=== PATIENT | female | born 1995 | race Caucasian/White ===

== ENCOUNTER 2022-12-08 17:11 | Outpatient (CLI) | payer BC, SELFPAY ==
[2022-12-10 10:25] LABS: Rubella IgG Ab (UVM) Positive (See Note); Varicella IgG Antibody Positive (See Note)
[2022-12-10 10:42] LABS: HIV-1/2 Ag & Ab Screen Negative (Negative)
[2022-12-10 11:36] LABS: Hepatitis A Antibody IgM Negative (Negative); Hepatitis B Core Antibody Negative (Negative); Hepatitis B surface Ag Negative (Negative); Hepatitis C Ab w Rflx HCV PCR Negative (Negative)
[2022-12-11 18:16] LABS: Syphilis IgG w/Reflex Nonreactive (Nonreactive)
== END 2022-12-08 17:12 | disposition home or self-care (01) ==
LOC: LBO 17:11
PROVIDERS: PCP Nurse Practitioner; Visit Provider Obstetrics & Gynecology
DX: Z31.69 Encounter for other general counseling and advice on procreation (principal); Z11.59 Encounter for screening for other viral diseases; Z11.4 Encounter for screening for human immunodeficiency virus [HIV]; Z11.3 Encounter for screening for infections with a predominantly sexual mode of transmission
CPT/HCPCS: 36415; 86704; 86709; 86787; 86803; 87340; 87389; 86762; 86780

== ENCOUNTER 2024-02-02 12:56 | Outpatient (REF) | payer BC, SELFPAY ==
--- NOTE | 2024-02-02 10:00 | PAPFT_PTH ---
PATIENT: Karina Castillo LOC: [facility] U#:[id number] AGE/SX: 28/F ROOM: RE02/02/[address]: Emmie Rodrigues CNM : 1995 BED: DIS: 02/02/2024 SPEC #: [id number] RECD: 02/02/24 17:34 STATUS: PRANAY DALE #: [id number] ALEC: 02/02/24 10:[address]: Emmie Rodrigues DEPT: PENDING SALE TO [facility] Cytology RECD BY: Estella Strauss ENTERED: 02/02/24 17:34 SP TYPE: PAPFT OTHR DR: Niki Perez Tissues: 1 - CX/ENDOCX FOR PAP SMEARS Procedures: PAP THIN PREP/UVM Screening Comments: [id number] (CHLAMYDIA/GC)
[2024-02-02 16:16] LABS: *AMPHETAMINES SCREEN URINE Negative (Negative); *BARBITURATES SCREEN URINE Negative (Negative); *BENZODIAZEPINES SCREEN URINE Negative (Negative); Cannabinoids THC Negative (Negative); Cocaine Screen,Urine Negative (Negative); METHADONE URINE SCREEN Negative (Negative); OPIATES URINE SCREEN Negative (Negative)
[2024-02-02 16:20] LABS: Tricyclic Antidepressants Negative (Negative)
[2024-02-03 11:25] LABS: Fentanyl Scr w/Rfx Confirm Negative ng/mL (<1)
[2024-02-04 12:54] LABS: Chlamydia Result Negative (Negative); GC Result Negative (Negative)
[2024-02-08 10:33] LABS: Buprenorphine Negative ng/mL (Cutoff: 5.0); Norbuprenorphine Negative ng/mL (Cutoff: 2.5)
== END 2024-02-02 12:57 | disposition home or self-care (01) ==
LOC: LBN 12:56
PROVIDERS: PCP Nurse Practitioner; Visit Provider Advanced Practice Midwife
DX: Z34.91 Encounter for supervision of normal pregnancy, unspecified, first trimester (principal); B96.89 Other specified bacterial agents as the cause of diseases classified elsewhere
CPT/HCPCS: 36415; 80053; 80307; 80348; 86787; 86803; 86850; 86900; 86901; 87340; 87389; 87491; 87591; 88142; 84443; 85025; 86762; 86780; 87086

== ENCOUNTER 2024-02-02 14:43 | Outpatient (CLI) | payer BC, SELFPAY ==
[2024-02-02 11:48] LABS: Panorama Kit Sent via Fed Ex
[2024-02-02 11:51] LABS: Abs Immature Grans 0.06 10^3/uL (0.0-0.06); Absolute Basophil Count 0.03 10^3/uL (0.0-0.2); Absolute Eosinophil Count 0.17 10^3/uL (0.0-0.7); Absolute Lymphocyte Count 2.15 10^3/uL (1.2-3.4); Absolute Monocyte Count 0.91 10^3/uL (0.1-0.8); Absolute Neutrophil Count 8.31 10^3/uL (1.2-6.7); Basophils % 0.3 %; Eosinophils % 1.5 %; HCT 36.8 % (36.0-46.0); HGB 12.6 g/dL (11.2-15.7); Immature Grans % 0.5 %; Lymphocytes % 18.5 %; MCH 31.6 pg (27.0-33.0); MCHC 34.2 % (32.0-36.0); MCV 92 fL (80-95); MPV 9.3 fL (8.0-11.0); Monocytes % 7.8 %; Neutrophils % 71.4 %; Platelet Count 338 10^3/uL (130-400); RBC 3.99 10^6/uL (3.93-5.22); RDW 12.6 % (11.7-14.6); RDW-SD 43.1 fL; WBC 11.64 10^3/uL (4.4-10.8)
[2024-02-02 12:15] LABS: ALT 22 U/L (14-59); AST 9 U/L (15-37); Albumin 3.4 g/dL (3.4-5.0); Alkaline Phosphatase 78 U/L (46-116); Anion Gap 12.2 mmol/L (3-11); BUN 3 mg/dL (7-18); Bilirubin, Total 0.2 mg/dL (0.2-1.0); CO2 21.8 mmol/L (21.0-32.0); CREATININE 0.5 mg/dL (0.55-1.02); Calcium 8.4 mg/dL (8.5-10.1); Chloride 104 mmol/L (98-107); Estimated GFR 131.75 (mL/min/1.73m2); Glucose 90 mg/dL (74-106); Potassium 3.7 mmol/L (3.5-5.1); Sodium 138 mmol/L (136-145); TSH (W/Ref FT4) 2.77 uIU/mL (0.36-3.74); Total Protein 7.2 g/dL (6.4-8.2)
[2024-02-03 11:11] LABS: Hepatitis B Surface Ag Negative (Negative)
[2024-02-03 11:44] LABS: Hepatitis C Ab w Rflx HCV PCR Negative (Negative)
[2024-02-03 11:59] LABS: HIV-1/2 Ag & Ab Screen Negative (Negative)
[2024-02-03 12:00] LABS: Varicella IgG Antibody Positive (See Note)
[2024-02-03 12:09] LABS: Rubella IgG Ab (UVM) Positive (See Note)
[2024-02-04 15:40] LABS: Syphilis IgG w/Reflex Nonreactive (Nonreactive)
== END 2024-02-02 14:44 | disposition home or self-care (01) ==
LOC: LBO 14:49
PROVIDERS: PCP Nurse Practitioner; Visit Provider Advanced Practice Midwife
DX: Z34.91 Encounter for supervision of normal pregnancy, unspecified, first trimester (principal); Z3A.12 12 weeks gestation of pregnancy
CPT/HCPCS: 36415; 80053; 86787; 86803; 86850; 86900; 86901; 87340; 87389; 84443; 85025; 86762; 86780

== ENCOUNTER 2024-02-11 05:12 | Outpatient (CLI) | payer BC, SELFPAY ==
[2024-02-11 11:19] LABS: Glucose,1 Hr (Glucola) 120 mg/dL (80-140)
== END 2024-02-11 05:13 | disposition home or self-care (01) ==
LOC: LBO 05:12
PROVIDERS: PCP Nurse Practitioner; Visit Provider Advanced Practice Midwife
DX: Z34.91 Encounter for supervision of normal pregnancy, unspecified, first trimester (principal); Z3A.12 12 weeks gestation of pregnancy
CPT/HCPCS: 36415; 82950

== ENCOUNTER 2024-05-18 10:04 | Outpatient (CLI) | payer BC, SELFPAY ==
--- NOTE | 2024-05-18 12:45 | DI.US_ITS ---
Exam(s) US OB LETI WEIGHT EXAM: US OB LETI WEIGHT CLINICAL HISTORY: bleeding in 3rd trimester,f/u low lying placenta,O44.41,O46.93. TECHNIQUE: Transabdominal obstetrical ultrasound performed. COMPARISON: US US OB F/U FACIAL/LVOT/RVOT from 03/29/2024 FINDINGS:: Number of fetuses: 1 position: CEPHALIC Placental location: POSTERIOR No evidence of previa. The edge of the placenta measures 5 cm from th e internal. BIOMETRIC DATA: BPD: 7.27cm, 29weeks 1day HC: 26.78cm, 29weeks 1day AC: 24.95cm, 29weeks 1day FL: 5.5cm, 29weeks EFW: 1,339.15g, 3lb, 97% Composite Age: 29weeks 1day PETER: 08/02/2024 Heart Rate: 135bpm Amniotic fluid index: 17.99cm, upper limit of normal. IMPRESSION: size and weight are large for dates. Placenta appears normal. DATA REPOSITORY:
== END 2024-05-18 10:24 ==
LOC: DI 10:04
PROVIDERS: PCP Nurse Practitioner; Visit Provider Advanced Practice Midwife
DX: Z34.92 Encounter for supervision of normal pregnancy, unspecified, second trimester; Z3A.27 27 weeks gestation of pregnancy
CPT/HCPCS: 76816

== ENCOUNTER 2024-05-18 14:42 | Outpatient (REF) | payer BC, SELFPAY | END 2024-05-18 14:43 | disposition home or self-care (01) | LOC: LBN 14:42 | PROVIDERS: PCP Nurse Practitioner; Visit Provider Advanced Practice Midwife | DX: O46.93 Antepartum hemorrhage, unspecified, third trimester (principal); Z3A.37 37 weeks gestation of pregnancy | CPT/HCPCS: 87480; 87510; 87660 ==

== ENCOUNTER 2024-05-24 02:57 | Outpatient (CLI) | payer BC, SELFPAY ==
[2024-05-24 08:11] LABS: HCT 33.8 % (36.0-46.0); HGB 11.2 g/dL (11.2-15.7); MCH 31.1 pg (27.0-33.0); MCHC 33.1 % (32.0-36.0); MCV 94 fL (80-95); MPV 9.6 fL (8.0-11.0); Platelet Count 291 10^3/uL (130-400); RDW 14.3 % (11.7-14.6); RDW-SD 48.8 fL; WBC 11.43 10^3/uL (4.4-10.8)
[2024-05-24 08:34] LABS: Glucose,1 Hr (Glucola) 108 mg/dL (80-140)
== END 2024-05-24 02:58 | disposition home or self-care (01) ==
LOC: LBO 02:57
PROVIDERS: PCP Nurse Practitioner; Visit Provider Advanced Practice Midwife
DX: Z34.93 Encounter for supervision of normal pregnancy, unspecified, third trimester (principal)
CPT/HCPCS: 36415; 82950; 85027

== ENCOUNTER 2024-05-24 09:17 | Outpatient (REF) | payer BC, SELFPAY ==
[2024-05-24 11:06] LABS: *AMPHETAMINES SCREEN URINE Negative (Negative); *BARBITURATES SCREEN URINE Negative (Negative); *BENZODIAZEPINES SCREEN URINE Negative (Negative); Cannabinoids THC Negative (Negative); Cocaine Screen,Urine Negative (Negative); METHADONE URINE SCREEN Negative (Negative); OPIATES URINE SCREEN Negative (Negative)
[2024-05-24 11:07] LABS: Tricyclic Antidepressants Negative (Negative)
[2024-05-25 11:51] LABS: Fentanyl Scr w/Rfx Confirm Negative ng/mL (<1)
[2024-05-31 12:38] LABS: Buprenorphine Negative ng/mL (Cutoff: 5.0); Norbuprenorphine Negative ng/mL (Cutoff: 2.5)
== END 2024-05-24 09:18 | disposition home or self-care (01) ==
LOC: LBN 09:17
PROVIDERS: Advanced Practice Midwife; PCP Nurse Practitioner; Visit Provider Advanced Practice Midwife
DX: Z34.93 Encounter for supervision of normal pregnancy, unspecified, third trimester (principal)
CPT/HCPCS: 80307; 80348

== ENCOUNTER 2024-06-08 02:03 | Outpatient (CLI) | payer BC, SELFPAY ==
[2024-06-08 15:05] LABS: HCT 33.1 % (36.0-46.0); HGB 11.2 g/dL (11.2-15.7); MCH 31.5 pg (27.0-33.0); MCHC 33.8 % (32.0-36.0); MCV 93 fL (80-95); MPV 9.6 fL (8.0-11.0); Platelet Count 277 10^3/uL (130-400); RBC 3.56 10^6/uL (3.93-5.22); RDW 14.2 % (11.7-14.6); RDW-SD 48.4 fL; WBC 13.53 10^3/uL (4.4-10.8)
[2024-06-08 16:23] LABS: Glucose,1 Hr (Glucola) 146 mg/dL (80-140)
== END 2024-06-08 02:04 | disposition home or self-care (01) ==
LOC: LBO 02:03
PROVIDERS: Advanced Practice Midwife; PCP Nurse Practitioner; Visit Provider Advanced Practice Midwife
DX: Z34.93 Encounter for supervision of normal pregnancy, unspecified, third trimester (principal)
CPT/HCPCS: 36415; 82950; 85027

== ENCOUNTER 2024-06-16 02:28 | Outpatient (CLI) | payer BC, SELFPAY ==
--- OUTSIDE RECORDS SUMMARY | 2024-06-16 02:29 | XMS_ITS | Clinical Summary ---
Author Organization [facility] Address [facility] [place] [address] Care Team Providers Care Business Area Director Name Role Phone Linda Phillips Primary Care Provider [phone] Allergies Active Allergy Reactions Criticality Noted Date Comments Unclassified Drug 08/26/2018 ALL CILLINS Medications Medication Sig Dispensed Refills Start Date End Date Status loratadine (CLARITIN REDITABS) 10 mg dissolvable tablet 05/15/2004 Active doxycycline (VIBRAMYCIN) 100 mg capsule 10/01/2004 Active Social History Tobacco Use Types Packs/Day Years Used Date Smoking Tobacco: Never Smokeless Tobacco: Never Sex and Gender Information Value Date Recorded Sex Assigned at Not on file Gender Identity Not on file Sexual Orientation Not on file Plan of Treatment Health Maintenance Due Date Last Done Comments HIV screen 2014 Hepatitis C Screening 2014 Hepatitis B vaccine (0-59 yrs) (1) 2015 Tetanus/Diphtheria/Pertussis Vaccines (1 - Tdap) 2015 Covid-19 Vaccine (1 - season) 2024 Influenza (Flu) vaccine (1 o f 1 - Influenza standard series) 05/07/2024 PAP Smear 12/05/2024 12/05/2021, 09/16/2018 Procedures Procedure Name Priority Date/Time Associated Diagnosis Comments BUFFERER CYTOLOGY FINAL REPORT Routine 12/05/2021 12:00 PM EDT from Last 3 Months or Most Recently Relevant to Health Maintenance Results * Teacher Lip Reading Cytology Final Report (12/05/2021 12:00 PM EDT) Teacher Lip Reading Cytology Final Report [id number] ? Location: [facility] The signing pathologist has (i) examined the relevant preparation(s) for the specimen(s) and (ii) rendered or confirmed the diagnosis(es). . ? Teacher Lip Reading Final DIAGNOSIS Normal Negative for intraepithelial lesion or malignancy (NILM). For consensus guidelines for the management of cervical cancer screening test results, please see: ?? http://www.asccp.o rg . Electronically signed by: ?Akosua PEÑA(ASCP)Gómez Verified: ??12/24/2021 16:16 ??Adon Performed at: ??-[facility] Dept. of Pathology, [place], [place] HPV RESULTS HPV testing either not indicated or not requested by clinician. To add on HPV testing, please submit a Pathology Order Update ([id number]) via ProtoGeo or contact the Client Response Center at . STATEMENT OF ADEQUACY Specimen submitted is satisfactory for evaluation. No endocervical component present. Note: ??Initial cross-sectional studies suggested that GARY cells were more commonly identified when an endocervical component was present, however subsequent longitudinal studies fail to show that women lacking an endocervical component in a Pap smear are at increased risk for GARY. CLINICAL INFORMATION HPV Option: ? Reflex HPV CT/NG Option: ? No Preparation: ?Liquid Based Pap Specimen Source: ?Cervical Endocervical LBP LMP: ?11/24/2021 Hysterectomy?: ?No ?: ?No ?: ?No I.U.D.?: ?No Pelvic Radiation: ? No Hist Abnl Pap/Biopsy?: ??No Prior BUFFERER Therapy?: ? No Hist of HPV Vaccine?: ?? No ICD Diagnosis: ?Z12.4 Encounter for screening for malignant neoplasm of cervix Referring Identifier: ?(not provided) Clinical Data, Significant Therapy and Clinical Impression ?? : ?? _ Referring Identifier: ??_ This Pap Test has been evaluated with the assistance of the LivevolPrep Pap Test Imaging System. Note: . CLINICAL INFORMATION The Pap test is a screening test for cervical cancer with an inherent false-negative rate dependent upon several variables. For further information please contact the [facility] Laboratory. Reference: Portia RAMIREZ. [place] Flaker of Pap Smear Results. In: Kyara BS, Nick HH, ed. ??The Pap Smear. [place]: Akil, 2002: 71-77. [facility] 12/05/2021 12:0 0 PM EDT Narrative Resulting Agency Comment Spec In Lab / [facility] Niki Perez APRN PATHOLOGY/CYTOLOGY O RDERABLES [facility] [place] [address] from Last 3 Months or Most Recently Relevant to Health Maintenance Care Teams Business Area Director Relationship Specialty Start Date End Date Linda Phillips PA [address] [place], [place] [id number] PCP - General Family Medicine 08/26/18
--- OUTSIDE RECORDS SUMMARY | 2024-06-16 02:29 | XMS_ITS | Encounter Summary ---
Author Organization [facility] Address [facility] [place] [address] Care Team Providers Care Residential Child Care Counselor Name Role Phone Linda Phillips Primary Care Provider [phone] Encounter Details Date Type Department Care Team (Latest Contact Info) Description 12/05/2021 10:08 PM EDT - 12/05/2021 11:59 PM EDT Hospital Encounter Laboratory [facility] [place] [id number] Discharge Disposition: Home Social History Tobacco Use Types Packs/Day Years Used Date Smoking Tobacco: Never Smokeless Tobacco: Never Sex and Gender Information Value Date Recorded Sex Assigned at Not on file Gender Identity Not on file Sexual Orientation Not on file documented as of this encounter Medications at Time of Discharge Medication Sig Dispensed Refills Start Date End Date doxycycline (VIBRAMYCIN) 100 mg capsule 0 10/01/2004 loratadine (CLARITIN REDITABS) 10 mg dissolvable tablet 05/15/2004 documented as of this encounter Plan of Treatment Not on file documented as of this encounter Procedures Procedure Name Priority Date/Time Associated Diagnosis Comments CREDIT REPORTING CLERK CYTOLOGY INTERPRETATION Routine 12/05/2021 12:00 PM EDT CREDIT REPORTING CLERK CYTOLOGY FINAL REPORT Routine 12/05/2021 12:00 PM EDT documented in this encounter Results * CREDIT REPORTING CLERK Cytology Interpretation (12/05/2021 12:00 PM EDT) Rv Service Technician Cytology Interpretation [facility] Comment:Rv Service Technician Cytology Final R eport Endocervical Component Not Present [facility] AP Specimen 12/05/2021 12:0 0 PM EDT 12/24/2021 4:16 PM EDT Narrative Resulting Agency Comment Spec In Lab / [facility] Niki Perez SOLDER MAKING SUPERVISOR PATHOLOGY/CYTOLOGY O RDERABLES [facility] [place] [address] * Rv Service Technician Cytology Final Report (12/05/2021 12:00 PM EDT) Rv Service Technician Cytology Final Report [id number] ? Location: [facility] The signing pathologist has (i) examined the relevant preparation(s) for the specimen(s) and (ii) rendered or confirmed the diagnosis(es). . ? Rv Service Technician Final DIAGNOSIS Normal Negative for intraepithelial lesion or malignancy (NILM). For consensus guidelines for the management of cervical cancer screening test results, please see: ?? http://www.asccp.o rg . Electronically signed by: ?Akosua PEÑA(ASCP)Gómez Verified: ??12/24/2021 16:16 ??Advisory Software Engineer Performed at: ??-[facility] Dept. of Pathology, [place], [place] HPV RESULTS HPV testing either not indicated or not requested by clinician. To add on HPV testing, please submit a Pathology Order Update ([id number]) via eD-H or contact the Client Response Center at [...] ? No Hist Abnl Pap/Biopsy?: ??No Prior CREDIT REPORTING CLERK Therapy?: ? No Hist of HPV Vaccine?: ?? No ICD Diagnosis: ?Z12.4 Encounter for screening for malignant neoplasm of cervix Referring Identifier: ?(not provided) Clinical Data, Significant Therapy and Clinical Impression ?? : ?? _ Referring Identifier: ??_ This Pap Test has been evaluated with the assistance of the Cloud9 IDEp Pap Test Imaging System. Note: . CLINICAL INFORMATION The Pap test is a screening test for cervical cancer with an inherent false-negative rate dependent upon several variables. For further information please contact the [facility] Laboratory. Reference: Portia RAMIREZ. Grinding Wheel Operator of Pap Smear Results. In: Kyara BS, Nick HH, ed. ??The Pap Smear. [place]: Akil, 2002: 71-77. [facility] 12/05/2021 12:0 0 PM EDT Narrative Resulting Agency Comment Spec In Lab / [facility] Niki Perez APRN PATHOLOGY/CYTOLOGY O RDERABLES [facility] [place] [address] documented in this encounter Visit Diagnoses Not on filedocumented in this encounter Care Teams Residential Child Care Counselor Relationship Specialty Start Date End Date Linda Phillips PA [address] [place] [address] PCP - General Family Medicine 08/26/18 documented as of this encounter
--- OUTSIDE RECORDS SUMMARY | 2024-06-16 02:29 | XMS_ITS | Encounter Summary ---
[place] [address] Care Team Providers Care Vehicle Assembly Inspector Name Role Phone Linda Phillips Primary Care Provider [phone] Reason for Referral * Consultation (Routine) - Authorized Specialty Diagnoses / Procedures Referred By Contac t Referred To Contact Gastroenterology Diagnoses Elevation of levels of liver transaminase levels metavir stage f1-f2 Niki Perez, PALLET RECTIFIER [address] [place] [address] [facility] [address] [place] [phone] Referral ID Status Reason Start Date Expiration Date Visits Requested Visits Authorized [id number] Authorized Consult, Test & Treat PCP Updated and/or Approved 12/22/2023 12/21/2024 6 6 Encounter Details Date Type Department Care Team (Latest Contact Info) Description 12/29/2023 Transcribe Orders eDH Incoming Referrals [phone] Linda Phillips PA [address] [place] [phone] Elevation of levels of liver transaminase levels Social History Tobacco Use Types Packs/Day Years Used Date Smoking Tobacco: Never Smokeless Tobacco: Never Sex and Gender Information Value Date Recorded Sex Assigned at Not on file Gender Identity Not on file Sexual Orientation Not on file documented as of this encounter Plan of Treatment Scheduled Referrals Name Type Priority Associated Diagnoses Order Schedule Referral to Gastroenterology Outpatient Referral Routine Elevation of levels of liver transaminase levels Ordered: 12/29/2023 documented as of this encounter Visit Diagnoses Diagnosis Elevation of levels of liver transaminase levels documented in this encounter Care Teams Vehicle Assembly Inspector Relationship Specialty Start Date End Date Linda Phillips PA [address] [place] [address] PCP - General Family Medicine 08/26/18 documented as of this encounter
--- OUTSIDE RECORDS SUMMARY | 2024-06-16 02:29 | XMS_ITS | Encounter Summary ---
Author Organization [facility] [place] [address] Care Team Providers Care Outreach Educator Name Role Phone Linda Phillips Primary Care Provider [phone] Encounter Details Date Type Department Care Team (Late st Contact Info) Description 12/20/2023 Interpretation Only Radiology Library at [facility] [place] [id number] Flynn Jara MD [facility] [place] [address] Social History Tobacco Use Types Packs/Day Years Used Date Smoking Tobacco: Never Smokeless Tobacco: Never Sex and Gender Information Value Date Recorded Sex Assigned at Not on file Gender Identity Not on file Sexual Orientation Not on file documented as of this encounter Plan of Treatment Not on file documented as of this encounter Procedures Procedure Name Priority Date/Time Associated Diagnosis Comments FILM LIBRARY STORAGE ONLY ULTRASOUND STUDY Routine 12/20/2023 12:00 AM EDT documented in this encounter Results * Film Library- Storage Only Ultrasound Study (12/20/2023 12:00 AM EDT) 12/27/2023 3:26 PM EDT Narrative GARRY Cho 12/27/2023 3:26 PM EDT This exam is auto-finalizing. It's purpose is for storage only. Flynn Jara MD IMG FILM LIBRARY OR DERABLES [facility] [place], [place] documented in this encounter Visit Diagnoses Not on filedocumented in this encounter Care Teams Outreach Educator Relationship Specialty Start Date End Date Linda [place] [address] PCP - General Family Medicine 08/26/18 documented as of this encounter
--- OUTSIDE RECORDS SUMMARY | 2024-06-16 02:29 | XMS_ITS | Encounter Summary ---
Author Organization [facility] Address [facility] [place] [address] Care Team Providers Care Line Repairer Name Role Phone Linda Phillips Primary Care Provider [phone] Reason for Visit * Reason Comments Skin Check * Consultation (Routine) - Specialty Diagnoses / Procedures Referred By Contac t Referred To Contact Dermatology Diagnoses Acne, unspecified Acne Procedures Consult Shyanne Torres APRN [address] [place] [address] Ronaldo Henning MD [address] [place] [address], [facility] [place] [address] Referral ID Status Reason Start Date Expiration Date V isits Requested Visits Authorized [id number] Consult, Test & Treat PCP Updated and/or Approved 02/21/2018 02/21/2019 6 6 Encounter Details Date Type Department Care Team (Late st Contact Info) Description 08/26/2018 10:30 AM EST Office Visit Dermatology at [address] [phone] Ronaldo Henning MD [address] [place] [address], [facility] [place], [place] [id number] Allergic contact dermatitis, unspecified trigger Social History Tobacco Use Types Packs/Day Years Used Date Smoking Tobacco: Never Smokeless Tobacco: Never Sex and Gender Information Value Date Recorded Sex Assigned at Not on file Gender Identity Not on file Sexual Orientation Not on file documented as of this encounter Progress Notes * Ronaldo Henning MD - 08/26/2018 10:30 AM EST Problem: Lip dermatitis Karina is a 22-year-old woman 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 It seems to be associated with the use of Carmex SPF 15 sunscreen lip balm. Seems to be better when she uses mupirocin ointment. She currently is using Blistex lip Medex which has no SPF and she can tolerate that. She uses Crest toothpaste. She is not having any problems right now. Seems like it was worse this summer less of a problem now this winter. She does not have any rash anywhere but just on her lips. Physical examination reveals a pleasant 22-year-old woman who has today no dermatitis erythema or changes of the lips or the surrounding chin or upper cutaneous lip. Intraoral examination is benign. Assessment plan: Irritant versus allergic contact dermatitis to sunscreen additive in lip balm 1. Patient recalls an itchy rash rash after once using a topical sunscreen to her arms this last summer. 2. Recommend use of chemical free sunscreen either zinc oxide or titanium dioxide on her skin. 3. Recommend that she use [employer] regular flavor toothpaste and to avoid any chemical sunscreen containing the palms. Discussed the use of Vaseline petroleum jelly as a good lip balm as well 4. Patient does not use any mouthwashes and when she does use hard candies or use lozenges has no reaction on her lips. 5. Return to clinic as needed. CC: Linda PULIDO documented in this encounter Plan of Treatment Not on file documented as of this encounter Visit Diagnoses Diagnosis Allergic contact dermatitis, unspecified trigger documented in this encounter Care Teams Line Repairer Relationship Specialty Start Date End Date Linda Phillips [place] [address] PCP - General Family Medicine 08/26/18 documented as of this encounter
--- OUTSIDE RECORDS SUMMARY | 2024-06-16 02:29 | XMS_ITS | Encounter Summary ---
Author Organization [facility] Address [facility] [place] [address] Care Team Providers Care Stave Hewer Name Role Phone Linda Phillips Primary Care Provider [phone] Encounter Details Date Type Department Care Team (Latest Contact Info) Description 09/16/2018 9:43 PM EST - 09/16/2018 11:59 PM EST Hospital Encounter Laboratory [facility] [place] [address] Discharge Disposition: Home Social History Tobacco Use [...] Procedure Name Priority Date/Time Associated Diagnosis Comments SQL TECH CYTOLOGY INTERPRETATION Routine 09/16/2018 6:00 PM EST SQL TECH CYTOLOGY FINAL REPORT Routine 09/16/2018 6:00 PM EST documented in this encounter Results * Memory Care Program Director Cytology Final Report (09/16/2018 6:00 PM EST) Memory Care Program Director Cytology Final Report [id number] ? Location: [facility] The signing pathologist has (i) examined the relevant preparation(s) for the specimen(s) and (ii) rendered or confirmed the diagnosis(es). . ? Memory Care Program Director Final DIAGNOSIS Normal Negative for intraepithelial lesion or malignancy (NILM). For consensus guidelines for the management of cervical cancer screening test results, please see: ?? http://www.asccp.o rg . Electronically signed by: ??Reji PEÑA(ASCP)Migdalia Verified: ??09/29/2018 ?Truck Operator Performed at: ??-[facility] Dept. of Pathology, [place], [place] HPV RESULTS Not applicable (HPV testing either not indicated or not requested by clinician). STATEMENT OF ADEQUACY Specimen submitted is satisfactory for evaluation. No endocervical component present. Note: ??Initial cross-sectional studies suggested that GARY cells were more commonly identified when an endocervical component was present, however subsequent longitudinal studies fail to show that women lacking an endocervical component in a Pap smear are at increased risk for GARY. CLINICAL INFORMATION HPV Option: ? Reflex HPV CT/NG Option: ??No Preparation: ?Liquid Based Pap Specimen Source: ?Cervical/LBP LMP: ?_ Hormones?: ?Yes Hysterectomy?: ?No ?: ?No ?: ?No I.U.D.?: ?No Pelvic Radiation: ? No Prior SQL TECH Therapy?: ? No Hist Abnl Pap/Biopsy?: ??No Hist of HPV Vaccine?: ?? Yes Hist of Smoking?: ? No Hist of ELKE exposure?: ??No Clinical Data, Significant Therapy and Clinical Impression ?? : ?? _ Referring Identifier: ?(not provided) This Pap Test has been evaluated with the assistance of the DataPadPrep Pap Test Imaging System. Note: The Pap test is a screening test for cervical cancer with an inherent false-negative rate dependent upon several variables. For further information please contact the [facility] Laboratory. Reference: Portia RAMIREZ. Veterans Services Specialist of Pap Smear Results. In: Kyara BS, Nick HH, ed. ??The Pap Smear. [place]: Akil, 2002: 71-77. . CLINICAL INFORMATION [facility] 09/16/2018 6:00 PM EST Татьяна Bah APRN PATHOLOGY/CYT OLOGY ORDERABLES Performing Organization Address [facility] Co de Phone Number [facility] [place] [address] * SQL TECH Cytology Interpretation (09/16/2018 6:00 PM EST) Memory Care Program Director Cytology Interpretation [facility] Comment:Memory Care Program Director Cytology Final R eport Endocervical Component Not Present [facility] AP Specimen 09/16/2018 6:00 PM EST 09/29/2018 1:45 PM EST Татьяна Bah APRN PATHOLOGY/CYT OLOGY ORDERABLES Performing Organization Address City/[facility] Co de Phone Number [facility] [place] [address] documented in this encounter Visit Diagnoses Not on filedocumented in this encounter Care Teams Stave Hewer Relationship Specialty Start Date End Date Linda [place] [address] PCP - General Family Medicine 08/26/18 documented as of this encounter
--- OUTSIDE RECORDS SUMMARY | 2024-06-16 02:29 | XMS_ITS | Clinical Summary ---
Author Organization [facility] Address [address] [place] [address] Care Team Providers Care Manager Sql Name Role Phone Unavailable Primary Care Provider Unavailabl e Encounters Date Type Department Care Team Description 05/24/2024 Lab Requisition [facility] Pathology & Laboratory Medicine - [facility] [address] [place] [address] Outr Resulting Lab, Provider from Last 3 Months Social History Tobacco Use Types Packs/Day Years Used Date Smoking Tobacco: Never Assessed Sex and Gender Information Value Date Recorded Sex Assigned at Not on file Gender Identity Not on file Sexual Orientation Not on file Plan of Treatment Health Maintenance Due Date Last Done Comments Hepatitis B Vaccine (1 of 3 - 19+ 3-dose series) 09/30 COVID-19 Vaccine ( season) 2024 Hepatitis C Screen Completed 02/02/2024 Procedures Procedure Name Priority Date/Time Associated Diagnosis Comments FENTANYL SCREEN WITH REFLEX TO CONFIRMATION, U Routine 05/24/2024 8:45 EDT HEPATITIS C AB W REFLEX TO HCV RNA BY PCR Routine 02/02/2024 11:35 EDT from Last 3 Months or Most Recently Relevant to Health Maintenance Results * FENTANYL SCREEN WITH REFLEX TO CONFIRMATION, U (05/24/2024 8:45 EDT) Fentanyl Screen with Reflex to Confirmation, U Negative <1 ng/mL 05/25/2024 11:47 EDT [facility] Urine URINE / Unknown 05/24/2024 8 :45 EDT 05/24/2024 17:17 EDT Narrative [facility] - 05/25/2024 11:47 EDT Testing performed by: [facility] [address] [place] [address], [address], [place] [address] Patrol Captain: Micah Box MD; CLIA # [id number] Provider Outr Resulting Lab URINALYSIS O RDERABLES [facility] [address] [facility], [facility] [address] [place] [address], [facility] [phone] * HEPATITIS C AB W REFLEX TO HCV RNA BY PCR (02/02/2024 11:35 EDT) Hep C Antibody Negative Negative 02/03/2024 11:39 EDT [facility] Blood VENOUS BLOOD / Unknown 02/02/2024 11:35 EDT 02/02/2024 21:28 EDT Provider Outr Resulting Lab CHEMISTRY & BLOOD GAS ORDERABLES [facility] [address] [place] [id number] from Last 3 Months or Most Recently Relevant to Health Maintenance
--- OUTSIDE RECORDS SUMMARY | 2024-06-16 02:29 | XMS_ITS | Encounter Summary ---
Author Organization [facility] Address [facility] [place] [address] Care Team Providers Care Adult Psychiatrist Name Role Phone Linda Phillips Primary Care Provider [phone] Encounter Details Date Type Department Care Team (Latest Contact Info) Description 04/14/2019 9:09 PM EDT - 04/14/2019 11:59 PM EDT Hospital Encounter Laboratory [facility] [place] [id number] Discharge Disposition: Home Social History Tobacco Use [...] Procedure Name Priority Date/Time Associated Diagnosis Comments CT/NG PCR Routine 04/14/2019 12:00 PM EDT documented in this encounter Results * CT/NG PCR (04/14/2019 12:00 PM EDT) Chlamydia Gene Amp Negative Negative [facility] Comment: This assay was performed in the [facility] using the vikram?? CT/NG v2.0 Test ([employer] The vikram?? CT/NG v2.0 Test is an in vitro diagnostic test for the qualitative detection of Chlamydia trachomatis (CT) and/or Neisseria gonorrhoeae (NG) DNA in urogenital specimens. The Test utilizes the Polymerase Chain Reaction (PCR) for the detection of Chlamydia trachomatis and Neisseria gonorrhoeae DNA in cervical specimens collected in PreservCyt?? solution. This test is intended as an aid in the diagnosis of chlamydial and gonococcal disease in both symptomatic and asymptomatic individuals. GC Gene Amp Negative Negative [facility] Comment: This assay was performed in the [facility] Laboratory using the vikram?? CT/NG v2.0 Test ([employer] The vikram?? CT/NG v2.0 Test is an in vitro diagnostic test for the qualitative detection of Chlamydia trachomatis (CT) and/or Neisseria gonorrhoeae (NG) DNA in urogenital specimens. The Test utilizes the Polymerase Chain Reaction (PCR) for the detection of Chlamydia trachomatis and Neisseria gonorrhoeae DNA in cervical specimens collected in PreservCyt?? solution. This test is intended as an aid in the diagnosis of chlamydial and gonococcal disease in both symptomatic and asymptomatic individuals. Cervical swab (specimen) 04/14/2019 12:00 PM EDT 04/19/2019 9:09 AM EDT Narrative Resulting Agency Comment Spec In Lab / WKS Fani Jay APRN MOLECULAR ORDERABLES [facility] [place] [address] documented in this encounter Visit Diagnoses Not on filedocumented in this encounter Care Teams Adult Psychiatrist Relationship Specialty Start Date End Date Linda Phillips PA [address] [place] [address] PCP - General Family Medicine 08/26/18 documented as of this encounter
--- OUTSIDE RECORDS SUMMARY | 2024-06-16 02:29 | XMS_ITS | Encounter Summary ---
Author Organization [facility] Address [facility] [place] [address] Care Team Providers Care Marble Mechanic Helper Name Role Phone Linda Phillips Primary Care Provider [phone] Reason for Visit * Consultation (Routine) - Authorized Specialty Diagnoses / Procedures Referred By Darrion sevilla Referred To Contact Gastroenterology Diagnoses Elevation of levels of liver transaminase levels metavir stage f1-f2 Niki Perez, MICHAEAL [address] [place] [address] [facility] [address] [place] [id number] Referral ID Status Reason Start Date Expiration Date Visits Requested Visits Authorized [id number] Authorized Consult, Test & Treat PCP Updated and/or Approved 12/22/2023 12/21/2024 6 6 Encounter Details Date Type Department Care Team ([facility] st Contact Info) Description 02/08/2024 2:30 PM EDT TH Visit (TeleHealth) [place] [address] Amberly Campa APRN [facility] [place] [address] Elevated LFTs Social History Tobacco Use Types Packs/Day Years Used Date Smoking Tobacco: Never Smokeless Tobacco: Never Sex and Gender Information Value Date Recorded Sex Assigned at Not on file Gender Identity Not on file Sexual Orientation Not on file documented as of this encounter Progress Notes * Amberly Campa APRN - 02/08/2024 2:30 PM EDT Gastroenterology and Hepatology New Patient Visit Patient: Karina Dias : 1995 Provider: Amberly Campa APRN MSN History: Ms. Karina Dias is a 28 y.o. female previously healthy now here for initial consult for elevated lfts. 13 Weeks tomorrow. Due date 08/16/24 [place] No blood transfusion history. 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 Last alcoholic drink was the day her test was positive-First week of December 2023. Was drinking every other weekend. Was having 6-7 drinks when she did go out. She was drinking for about 1.5 years. Did have heavier alcohol use when she was 21 or 22 yo. No rehab history. She cut back because she was having trouble at work. Mom of cirrhosis-Alcohol. Mom had hcv and etoh as risk factors. She at 57 yo. Dad had liver jjocwx-nptclsile-zmsijiy history. He quit drinking 13 years ago. Does not take herbal supplements. Taking a PNV, and sertraline 50 mg. Also, taking a baby aspirin 81 mg. BMI-33. No miscarriage history. Stopped OCP in September of last year-took some time for cycle to regulate. She got started on metformin, and then got soon after. Diabetes-No HTN/HLD-No history. LOKESH-No History VHEK-Owq-Dhe previously been on metformin, Mild hb intermittently. No reflux. Appetite is great. Weight-177 pounds-Has gained 4 pounds with . No abdominal pain. Bowels-Normal for her. No bleeding, no melena. Used c-bands for first trimester. Lots of fatigue. Had some headaches initially. Surgery: T/A Slater teeth February 02, 2024 ALT-26 November 2023-Prior to . ALT-70 Social History: Motorycycle. Likes to be outside. Has her [employer] license. 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 ROS: Constitutional: No unintentional weight loss, fatigue, nor fevers. CV: Denies chest pain, palpitations, dizziness, SOB, Difficulty lying flat, and swollen ankles Resp: No cough, no wheezing GI: As per HPI : No increase in frequency, no burning, no pain with urination Hem: No easy bruising, no swollen nodes, denies gums bleeding easily. MSK: No joint pain/swelling, no muscle pain Skin: No new rash,sores, or lesions. Neuro: No loss of strength, no headaches, or memory loss/changes. Psych: No anxiety, depression, or difficulty sleeping. PROBLEM LIST There is no problem list on file for this patient. MEDICATIONS: Current Outpatient Medications Medication Sig Dispense Refill doxycycline (VIBRAMYCIN) 100 mg capsule loratadine (CLARITIN REDITABS) 10 mg dissolvable tablet No current facility-administered medications for this visit. ALLERGIES/ADR Allergies Allergen Reactions Unable To Find [Unclassified Drug] ALL CILLINS PHYSICAL EXAMINATION: There were no vitals filed for this visit. There is no height or weight on file to calculate BMI. Alert, and oriented. Easily converses with this production underwriter. Comfortable wob in ra. Skin and sclera are nonicteric. PERTINENT LABS AND IMAGING: No results found for: WBC, HGB, HCT, MCV No results found for: ALT, AST, GGT, ALKPHOS, BILITOT Chemistry No results found for: NA, K, CL, CO2, BUN, CREATININE No results found for: CALCIUM, ALKPHOS, AST, ALT, BILITOT IMPRESSION/PLAN: Karina Dias is a 28 y.o. female with previously healthy now here for initial consult forelevated lfts. Do not have all of her labs to review, no ob notes to review either. It sounds like her lfts were elevated prior to , and are normalizing. I suspect that lfts were elevated previously due toetoh. Will recheck labs in [facility]. Set her up for follow up 3-6 months after deliver for fibroscan. We discussed how etoh can cause the lfts to elevated. We also discussed fatty liver risk factors. Would continue to monitor lfts as normal for per her OB team. The patient was given my contact information and will call me with concerns or questions Total time spent on encounter today: Time spent reviewing records prior to this encounter: 5 minutes Time spent during encounter with patient including counselin minutes Time spent documenting encounter after office visit: 5 minutes Amberly Campa APRN MSN Section of Gastroenterology and [place] [address] Cc: ASHOK [email or web address] @[email or web address] documented in this encounter Plan of Treatment Scheduled Orders Name Type Priority Associated Diagnoses Orde r Schedule CBC (with Diff) Lab Routine Elevated LFTs Expected: 02/24/2024 (Approximate), Expires: 08/25/2024 Comprehensive metabolic panel (non-fasting) Lab Routine Elevated LFTs Expected: 02/24/2024 (Approximate), Expires: 08/25/2024 Prothrombin Time Lab Routine Elevated LFTs Expected: 02/24/2024 (Approximate), Expires: 08/25/2024 documented as of this encounter Visit Diagnoses Diagnosis Elevated LFTs Other abnormal blood chemistry documented in this encounter Care Teams Marble Mechanic Helper Relationship Specialty Start Date End Date Linda Phillips PA [address] [place] [address] PCP - General Family Medicine 08/26/18 documented as of this encounter
--- OUTSIDE RECORDS SUMMARY | 2024-06-16 02:29 | XMS_ITS | Encounter Summary ---
Author Organization [facility] Address [address] [place] [address] Care Team Providers Care Rehabilitation Center Manager Name Role Phone Unavailable Primary Care Provider Unavailabl e Encounter Details Date Type Department Care Team (Late st Contact Info) Description 02/02/2024 Lab Requisition [facility] Pathology & Laboratory Medicine - [facility] [address] [place] [address] Outr Resulting Lab, Provider Social History Tobacco Use Types Packs/Day Years Used Date Smoking Tobacco: Never Assessed Sex and Gender Information Value Date Recorded Sex Assigned at Not on file Gender Identity Not on file Sexual Orientation Not on file documented as of this encounter Plan of Treatment Not on file documented as of this encounter Procedures Procedure Name Priority Date/Time Associated Diagnosis Comments CHLAMYDIA/N. GONORRHOEAE AMPLIFIED NUCLEIC ACID, THINPREP Routine 02/02/2024 10:00 EDT documented in this encounter Results * CHLAMYDIA/N. GONORRHOEAE AMPLIFIED RNA, THINPREP (02/02/2024 10:00 EDT) Neisseria gonorrhoeae Result Negative Negative 02/04/2024 12:49 EDT [facility] Chlamydia trachomatis Result Negative Negative 02/04/2024 12:49 EDT [facility] Pap Test CERVIX UTERI STRUCTURE / Unknown 02/02/2024 10:00 EDT 02/03/2024 9:05 EDT Provider Outr Resulting Lab MICROBIOLOGY - GENERAL ORDERABLES [facility] [address] [place] [address] documented in this encounter Visit Diagnoses Not on filedocumented in this encounter
--- OUTSIDE RECORDS SUMMARY | 2024-06-16 02:29 | XMS_ITS | Encounter Summary ---
Author Organization [facility] Address [address] [place] [address] Care Team Providers Care Ship'S Electronic Warfare Officer Name Role Phone Unavailable Primary Care Provider Unavailabl e Encounter Details Date Type Department Care Team (Late st Contact Info) Description 05/24/2024 Lab Requisition [facility] Pathology & Laboratory Medicine - [facility] [address] [place] [address] Outr Resulting Lab, Provider Social History Tobacco [...] TO CONFIRMATION, U Routine 05/24/2024 8:45 EDT documented in this encounter Results * FENTANYL SCREEN WITH REFLEX TO CONFIRMATION, U (05/24/2024 8:45 EDT) Fentanyl Screen with Reflex to Confirmation, U Negative <1 ng/mL 05/25/2024 11:47 EDT [email or web address] Urine URINE / Unknown 05/24/2024 8 :45 EDT 05/24/2024 17:17 EDT Narrative [email or web address] - 05/25/2024 11:47 EDT Testing performed by: [facility] [address] [place] [address], [facility] [address] [address] Packaging Supervisor: Micah Box MD; CLIA # [id number] Provider Outr Resulting Lab URINALYSIS O RDERABLES [email or web address] [address] [place] [address], [address] [phone] documented in this encounter Visit Diagnoses Not on filedocumented in this encounter
--- OUTSIDE RECORDS SUMMARY | 2024-06-16 02:29 | XMS_ITS | Encounter Summary ---
Author Organization [facility] [place] [address] Care Team Providers Care Data Analytics Developer Name Role Phone Migdalia Kilpatrick MD Primary Care Provider [phone] Encounter Details Date Type Department Care Team (Late st Contact Info) Description 08/08/[address] [address] Kendra Garcia RN Social History Tobacco Use Types Packs/Day Years Used Date Smoking Tobacco: Never Assessed Sex and Gender Information Value Date Recorded Sex Assigned at Not on file Gender Identity Not on file Sexual Orientation Not on file documented as of this encounter Miscellaneous Notes * Telephone Encounter - Kendra Garcia RN - 08/08/2018 4:41 PM EST Opened in error documented in this encounter Plan of Treatment Not on file documented as of this encounter Visit Diagnoses Not on filedocumented in this encounter Care Teams Data Analytics Developer Relationship Specialty Start Date End Date Migdalia Kilpatrick MD [address] [place] [id number] PCP - General 07/29/10 08/25/18 documented as of this encounter
--- OUTSIDE RECORDS SUMMARY | 2024-06-16 02:29 | XMS_ITS | Encounter Summary ---
Author Organization [facility] Address [address] [place] [address] Care Team Providers Care Innovation Manager Name Role Phone Unavailable Primary Care Provider Unavailabl e Encounter Details Date Type Department Care Team (Late st Contact Info) Description 02/03/2024 Lab Requisition [facility] Pathology & Laboratory Medicine - [facility] [address] [place] [address] [address] [place] [address] Encounter for supervision of normal , unspecified, unspecified trimester; Encounter for supervision of normal , unspecified, first trimester Social History Tobacco Use Types Packs/Day Years Used Date Smoking Tobacco: Never Assessed Sex and Gender Information Value Date Recorded Sex Assigned at Not on file Gender Identity Not on file Sexual Orientation Not on file documented as of this encounter Plan of Treatment Not on file documented as of this encounter Procedures Procedure Name Priority Date/Time Associated Diagnosis Comments PAP TEST Today 02/02/2024 10:00 EDT Encounter for supervision of normal , unspecified, unspecified trimester Encounter for supervision of normal , unspecified, first trimester documented in this encounter Results * PAP TEST (02/02/2024 10:00 EDT) Specimens A. Cervix and/or Endocervix , ThinPrep Imaging System with Manual Evaluation 02/09/2024 13:49 EDT [facility] Specimen Adequacy Satisfactory for Evaluation - transformation zone component present Scant squamous epithelial component due to contaminant, possibly lubricant or other vaginal contaminant. 02/09/2024 13:49 EDT [facility] General Categorization Negative for intraepithelial lesion or malignancy 02/09/2024 13:49 EDT [facility] Attestation . 02/09/2024 13:49 EDT [facility] at 1349 Clinical History See below 02/09/20 13:49 EDT [facility] Performing Lab [facility] 02/09/2024 13:49 EDT [facility] Scanned Images 02/09/2024 13:49 EDT [facility] Pap Test CERVIX UTERI STRUCTURE / Unknown 02/02/2024 10:00 EDT 02/03/2024 14:20 EDT Emmie Rodrigues CNM PATHOLOGY ORDERABLES [facility] [address] [place] [address] documented in this encounter Visit Diagnoses Diagnosis Encounter for supervision of normal , unspecified, unspecified trimester Encounter for supervision of normal , unspecified, first trimester documented in this encounter
--- OUTSIDE RECORDS SUMMARY | 2024-06-16 02:29 | XMS_ITS | Encounter Summary ---
Author Organization [facility] Address [address] [place] [address] Care Team Providers Care Bottom Finisher Name Role Phone Unavailable Primary Care Provider Unavailabl e Encounter Details Date Type Department Care Team (Late st Contact Info) Description 02/02/2024 Lab Requisition [facility] Pathology & Laboratory Medicine - [facility] [address] [place] [address] Outr Resulting Lab, Provider Social History Tobacco [...] Procedure Name Priority Date/Time Associated Diagnosis Comments RUBELLA IGG ANTIBODY Routine 02/02/2024 11:35 EDT VARICELLA IGG ANTIBODY Routine 02/02/2024 11:35 EDT documented in this encounter Results * VARICELLA IGG ANTIBODY (02/02/2024 11:35 EDT) Varicella IgG Ab Positive See Note 02/03/2024 11:[address] [facility] Comment:Presence of detectab le Varicella Zoster virus IgG antibodies. Blood VENOUS BLOOD / Unknown 02/02/2024 11:35 EDT 02/02/2024 21:28 EDT Provider Outr Resulting Lab IMMUNOLOGY A ND SEROLOGY ORDERABLES [facility] [address] [place] [address] * RUBELLA IGG ANTIBODY (02/02/2024 11:35 EDT) Rubella IgG Ab Positive See Note 02/03/2024 12:[address] [facility] Comment:Positive for IgG ant ibodies to Rubella virus. Blood VENOUS BLOOD / Unknown 02/02/2024 11:35 EDT 02/02/2024 21:28 EDT Provider Outr Resulting Lab CHEMISTRY & BLOOD GAS ORDERABLES [facility] [address] [place] [address] documented in this encounter Visit Diagnoses Not on filedocumented in this encounter
--- OUTSIDE RECORDS SUMMARY | 2024-06-16 02:29 | XMS_ITS | Encounter Summary ---
Author Organization [facility] [place] [address] Care Team Providers Care Technical Professional Name Role Phone Linda Phillips Primary Care Provider [phone] Encounter Details Date Type Department Care Team (Late st Contact Info) Description 12/20/2023 Ancillary Procedure Radiology Library at [facility] [place] [address] Flynn Jara MD [facility] [place] [address] Social History Tobacco Use Types Packs/Day Years [...] Jara MD IMG FILM LIBRARY OR DERABLES [facility] [place], [place] documented in this encounter Visit Diagnoses Not on filedocumented in this encounter Care Teams Technical Professional Relationship Specialty Start Date End Date Linda Phillips [place] [address] PCP - General Family Medicine 08/26/18 documented as of this encounter
--- OUTSIDE RECORDS SUMMARY | 2024-06-16 02:29 | XMS_ITS | Encounter Summary ---
Author Organization [facility] Address [address] [place] [address] Care Team Providers Care Behavioral Sciences Instructor Name Role Phone Unavailable Primary Care Provider Unavailabl e Encounter Details Date Type Department Care Team (Late st Contact Info) Description 12/09/2022 Lab Requisition [facility] Pathology & Laboratory Medicine - [facility] [address] [place] [address] Outr Resulting Lab, Provider Social History Tobacco [...] Procedure Name Priority Date/Time Associated Diagnosis Comments HIV 1/2 ANTIGEN AND ANTIBODY, 4TH GENERATION Routine 12/08/2022 16:40 EDT documented in this encounter Results * HIV 1/2 ANTIGEN AND ANTIBODY, 4TH GENERATION (12/08/2022 16:40 EDT) HIV 1 and 2 Antibody/p24 Antigen, 4th Generation Negative Negative 12/10/2022 10:37 EDT [facility] Comment:If acute HIV-1 infec tion is suspected in a high risk patient, submit plasma specimen for HIV-1 RNA quantitation test. Blood VENOUS BLOOD / Unknown 12/08/2022 16:40 EDT 12/09/2022 19:37 EDT Narrative [facility] - 12/10/2022 10:37 EDT Fourth Generation assay performed on the Siemens Centaur XPT. Provider Outr Resulting Lab IMMUNOLOGY A ND SEROLOGY ORDERABLES [facility] [address] [place] [address] documented in this encounter Visit Diagnoses Not on filedocumented in this encounter
--- OUTSIDE RECORDS SUMMARY | 2024-06-16 02:29 | XMS_ITS | Encounter Summary ---
Author Organization [facility] Address [address] [place] [address] Care Team Providers Care Medical Cost Consultant Name Role Phone Unavailable Primary Care Provider Unavailabl e Encounter Details Date Type Department Care Team (Late st Contact Info) Description 12/09/2022 Lab Requisition [facility] Pathology & Laboratory Medicine - [facility] [address] [place] [address] Outr Resulting Lab, Provider Social History Tobacco [...] Procedure Name Priority Date/Time Associated Diagnosis Comments ACUTE HEPATITIS PROFILE Routine 12/08/2022 16:40 EDT documented in this encounter Results * ACUTE HEPATITIS PROFILE (12/08/2022 16:40 EDT) Hep B Surface Ag Negative Negative 12/10/2022 11:31 EDT [facility] Hep C Antibody Negative Negative 12/10/2022 11:31 EDT [facility] Hepatitis A Antibody, IgM Negative Negative 12/10/2022 11:31 EDT [facility] Comment:The results of this assay can be falsely lowered due to the consumption of Biotin. Hepatitis B Core Ab, Total Negative Negative 12/10/2022 11:31 EDT [facility] Blood VENOUS BLOOD / Unknown 12/08/2022 16:40 EDT 12/09/2022 19:37 EDT Provider Outr Resulting Lab CHEMISTRY & BLOOD GAS ORDERABLES [facility] [address] [place] [address] documented in this encounter Visit Diagnoses Not on filedocumented in this encounter
--- OUTSIDE RECORDS SUMMARY | 2024-06-16 02:29 | XMS_ITS | Encounter Summary ---
Author Organization [facility] Address [address] [place] [address] Care Team Providers Care Military Equipment Specialist Name Role Phone Unavailable Primary Care Provider Unavailabl e Encounter Details Date Type Department Care Team (Late st Contact Info) Description 12/09/2022 Lab Requisition [facility] Pathology & Laboratory Medicine - [facility] [address] [place] [address] Outr Resulting Lab, Provider Social History Tobacco [...] Associated Diagnosis Comments RUBELLA IGG ANTIBODY Routine 12/08/2022 16:40 EDT VARICELLA IGG ANTIBODY Routine 12/08/2022 16:40 EDT documented in this encounter Results * VARICELLA IGG ANTIBODY (12/08/2022 16:40 EDT) Varicella IgG Ab Positive See Note 12/10/2022 10:17 EDT [facility] Comment:Presence of detectab le Varicella Zoster virus IgG antibodies. Blood VENOUS BLOOD / Unknown 12/08/2022 16:40 EDT 12/09/2022 19:38 EDT Provider Outr Resulting Lab IMMUNOLOGY A ND SEROLOGY ORDERABLES [facility] [address] [place] [address] * RUBELLA IGG ANTIBODY (12/08/2022 16:40 EDT) Rubella IgG Ab Positive See Note 12/10/2022 10:19 EDT [facility] Comment:Positive for IgG ant ibodies to Rubella virus. Blood VENOUS BLOOD / Unknown 12/08/2022 16:40 EDT 12/09/2022 19:38 EDT Provider Outr Resulting Lab CHEMISTRY & BLOOD GAS ORDERABLES [facility] [address] [place] [address] documented in this encounter Visit Diagnoses Not on filedocumented in this encounter
--- OUTSIDE RECORDS SUMMARY | 2024-06-16 02:29 | XMS_ITS | Encounter Summary ---
Author Organization [facility] Address [address] [place] [address] Care Team Providers Care Food Expeditor Name Role Phone Unavailable Primary Care Provider Unavailabl e Encounter Details Date Type Department Care Team (Late st Contact Info) Description 02/02/2024 Lab Requisition [facility] Pathology & Laboratory Medicine - [facility] [address], [place] [id number] Outr Resulting Lab, Provider Social History Tobacco [...] Procedure Name Priority Date/Time Associated Diagnosis Comments HEPATITIS C AB W REFLEX TO HCV RNA BY PCR Routine 02/02/2024 11:35 EDT HEPATITIS B SURFACE ANTIGEN Routine 02/02/2024 11:35 EDT documented in this encounter Results * HEPATITIS B SURFACE ANTIGEN (02/02/2024 11:35 EDT) Hep B Surface Ag Negative Negative 02/03/2024 11:06 EDT [facility] Blood VENOUS BLOOD / Unknown 02/02/2024 11:35 EDT 02/02/2024 21:28 EDT Provider Outr Resulting Lab CHEMISTRY & BLOOD GAS ORDERABLES [facility] [address] [place], [place] [address] * HEPATITIS C AB W REFLEX TO HCV RNA BY PCR (02/02/2024 11:35 EDT) Hep C Antibody Negative Negative 02/03/2024 11:39 EDT [facility] Blood VENOUS BLOOD / Unknown 02/02/2024 11:35 EDT 02/02/2024 21:28 EDT Provider Outr Resulting Lab CHEMISTRY & BLOOD GAS ORDERABLES [facility] [address] [place] [address] documented in this encounter Visit Diagnoses Not on filedocumented in this encounter
--- OUTSIDE RECORDS SUMMARY | 2024-06-16 02:29 | XMS_ITS | Encounter Summary ---
Author Organization [facility] Address [address] [place] [address] Care Team Providers Care Insurance Verification Rep Name Role Phone Unavailable Primary Care Provider Unavailabl e Encounter Details Date Type Department Care Team (Late st Contact Info) Description 02/02/2024 Lab Requisition [facility] Pathology & Laboratory Medicine - [facility] [address] [place] [address] Outr Resulting Lab, Provider Social History Tobacco [...] SCREEN WITH REFLEX TO CONFIRMATION, U Routine 02/02/2024 9:40 EDT documented in this encounter Results * FENTANYL SCREEN WITH REFLEX TO CONFIRMATION, U (02/02/2024 9:40 EDT) Fentanyl Screen with Reflex to Confirmation, U Negative <1 ng/mL 02/03/2024 11:19 EDT [facility] Urine URINE / Unknown 02/02/2024 9 :40 EDT 02/02/2024 21:20 EDT Narrative [facility] - 02/03/2024 11:19 EDT Testing performed by: [facility] [address] [place] [address], [facility] [address] [address] Coder: Micah Box MD; CLIA # [id number] Provider Outr Resulting Lab URINALYSIS O RDERABLES [facility] [address] [place] [address], [address] [phone] documented in this encounter Visit Diagnoses Not on filedocumented in this encounter
--- OUTSIDE RECORDS SUMMARY | 2024-06-16 02:29 | XMS_ITS | Referral Summary ---
Author Organization [facility] Address [address] [place] [address] Care Team Providers Care Ring Facer Name Role Phone Unavailable Primary Care Provider Unavailabl e Encounters Date Type Department Care Team Description 05/24/2024 Lab Requisition [facility] Pathology & Laboratory Medicine - [facility] [address] [place] [address] Outr Resulting Lab, Provider from Last 3 Months Social History Tobacco Use Types Packs/Day Years Used Date Smoking Tobacco: Never Assessed Sex and Gender Information Value Date Recorded Sex Assigned at Not on file Gender Identity Not on file Sexual Orientation Not on file Plan of Treatment Not on file Procedures Procedure Name Priority Date/Time Associated Diagnosis [...] U Negative <1 ng/mL 05/25/2024 11:47 EDT [facility] Urine URINE / Unknown 05/24/2024 8 :45 EDT 05/24/2024 17:17 EDT Narrative [facility] - 05/25/2024 11:47 EDT Testing performed by: [facility] [address] [place] [address], [address], [place] [address] Stator Tester: Micah Box MD; CLIA # [id number] Provider Outr Resulting Lab URINALYSIS O RDERABLES [facility] [address] [facility], [address] [place] [address], [facility] [phone] * HEPATITIS C AB W REFLEX TO HCV RNA BY PCR (02/02/2024 11:35 EDT) Hep C Antibody Negative Negative 02/03/2024 11:39 EDT [facility] Blood VENOUS BLOOD / Unknown 02/02/2024 11:35 EDT 02/02/2024 21:28 EDT Provider Outr Resulting Lab CHEMISTRY & BLOOD GAS ORDERABLES [facility] [address] [place] [address] from Last 3 Months or Most Recently Relevant to Health Maintenance
--- OUTSIDE RECORDS SUMMARY | 2024-06-16 02:29 | XMS_ITS | Encounter Summary ---
Author Organization [facility] Address [address] [place] [address] Care Team Providers Care Operations Superintendent Name Role Phone Unavailable Primary Care Provider Unavailabl e Encounter Details Date Type Department Care Team (Late st Contact Info) Description 02/02/2024 Lab Requisition [facility] Pathology & Laboratory Medicine - [facility] [address] [place] [address] Outr Resulting Lab, Provider Social History Tobacco [...] 1/2 ANTIGEN AND ANTIBODY, 4TH GENERATION Routine 02/02/2024 11:35 EDT documented in this encounter Results * HIV 1/2 ANTIGEN AND ANTIBODY, 4TH GENERATION (02/02/2024 11:35 EDT) HIV 1 and 2 Antibody/p24 Antigen, 4th Generation Negative Negative 02/03/2024 11:54 EDT [facility] Comment:If acute HIV-1 infec tion is suspected in a high risk patient, submit plasma specimen for HIV-1 RNA quantitation test. Blood VENOUS BLOOD / Unknown 02/02/2024 11:35 EDT 02/02/2024 21:28 EDT Narrative [facility] - 02/03/2024 11:54 EDT Fourth Generation assay performed on the Siemens Centaur XPT. Provider Outr Resulting Lab IMMUNOLOGY A ND SEROLOGY ORDERABLES [facility] [address] [place] [address] documented in this encounter Visit Diagnoses Not on filedocumented in this encounter
[2024-06-16 08:58] LABS: Glucose 1 Hour 168 mg/dL
[2024-06-16 11:05] LABS: Glucose 3 Hour 95 mg/dL
== END 2024-06-16 02:29 | disposition home or self-care (01) ==
LOC: LBO 02:28
PROVIDERS: PCP Nurse Practitioner; Visit Provider Advanced Practice Midwife
DX: Z34.93 Encounter for supervision of normal pregnancy, unspecified, third trimester (principal)
CPT/HCPCS: 36415; 82951

== ENCOUNTER 2024-07-21 15:33 | Outpatient (REF) | payer BC, SELFPAY | END 2024-07-21 15:34 | disposition home or self-care (01) | LOC: LBN 15:33 | PROVIDERS: PCP Nurse Practitioner; Visit Provider Obstetrics & Gynecology | DX: Z34.93 Encounter for supervision of normal pregnancy, unspecified, third trimester (principal); Z3A.36 36 weeks gestation of pregnancy | CPT/HCPCS: 87081 ==

== ENCOUNTER 2024-07-26 20:11 | Outpatient (CLI) | payer BC, SELFPAY ==
--- OUTSIDE RECORDS SUMMARY | 2024-07-26 20:15 | XMS_ITS | Referral Summary ---
Author Organization [facility] Address [address] [place] [address] Care Team Providers Care Curing Supervisor Name Role Phone Unavailable Primary Care Provider Unavailabl e Encounters Date Type Department Care Team Description 05/24/[address] [facility] Pathology & Laboratory Medicine - [facility] [address] [place] [address] Outr Resulting Lab, Provider from Last 3 Months Social History Tobacco Use Types Packs/Day Years Used Date Smoking Tobacco: Never Assessed Comments Unknown Sex and Gender Information Value Date Recorded Sex Assigned at Not on file Legal Sex Female 3:17 EDT Gender Identity Not on file Sexual Orientation [...] U Negative <1 ng/mL 05/25/2024 11:47 EDT [facility] Urine URINE / Unknown 05/24/2024 8 :45 EDT 05/24/2024 17:17 EDT Narrative [facility] - 05/25/2024 11:47 EDT Testing performed by: [facility] [address] [place] [address], [address], [place] [address] Deicer Inspector Pneumatic: Micah Box MD; CLIA # [id number] us Provider Outr Resulting Lab URINALYSIS ORDERABLE S Final Result [facility] [address] [facility], [address] [phone] * HEPATITIS C AB W REFLEX TO HCV RNA BY PCR (02/02/2024 11:35 EDT) Hep C Antibody Negative Negative 02/03/2024 11:39 EDT [facility] Blood VENOUS BLOOD / Unknown 02/02/2024 11:35 EDT 02/02/2024 21:28 EDT us Provider Outr Resulting Lab CHEMISTRY & BLOOD GA S ORDERABLES Final Result [facility] [address] [place], [place] [id number] from Last 3 Months or Most Recently Relevant to Health Maintenance
--- OUTSIDE RECORDS SUMMARY | 2024-07-26 20:15 | XMS_ITS | Encounter Summary ---
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 Niki Perez, MICHAELA [address] [place] [address] [facility] [address] [place] [phone] Referral ID Status Reason Start Date Expiration Date Visits Requested Visits Authorized [id number] Authorized Consult, Test & Treat PCP Updated and/or Approved 12/22/2023 12/21/2024 6 6 Encounter Details Date Type Department Care Team ([facility] st Contact Info) Description 02/08/2024 2:30 PM EDT TH Visit (TeleHealth) [place] [address] Amberly Campa APRN [facility] [place] [address] Elevated LFTs Social History Tobacco [...] lfts. 13 Weeks tomorrow. Due date 08/16/24 [facility] No blood transfusion history. 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 Dad had liver nyfzsh-qogkkvtlp-mggmimx history. He quit drinking 13 years ago. Does not take herbal supplements. Taking a PNV, and sertraline 50 mg. Also, taking a baby aspirin 81 mg. BMI-33. No miscarriage history. Stopped OCP in September of last year-took some time for cycle to regulate. She got started on metformin, and then got soon after. Diabetes-No HTN/HLD-No history. LOKESH-No History CKYN-Vtf-Nwx previously been on metformin, Mild hb intermittently. No reflux. Appetite is great. Weight-177 pounds-Has gained 4 pounds with . No abdominal pain. Bowels-Normal for her. No bleeding, no melena. Used c-bands for first trimester. Lots of fatigue. Had some headaches initially. Surgery: T/A [place] teeth February 02, 2024 ALT-26 November 2023-Prior to . ALT-70 Social History: Motorycycle. Likes to be outside. Has her [employer] license. 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 ROS: Constitutional: No unintentional weight loss, fatigue, [...] Alert, and oriented. Easily converses with this loan underwriter. Comfortable wob in ra. Skin and [...] previously due toetoh. Will recheck labs in [facility]. Set her up for follow up [...] APRN MSN Section of Gastroenterology [place] [address] Cc: [email or web address] documented in this [...] chemistry documented in this encounter Care Teams Tool Planner Relationship Specialty Start Date End Date Linda Phillips PA [address] [place] [address] PCP - General Family Medicine 08/26/18 documented as of this encounter
--- OUTSIDE RECORDS SUMMARY | 2024-07-26 20:15 | XMS_ITS | Encounter Summary ---
Author Organization [facility] [place] [address] Care Team Providers Care Car Conditioner Name Role Phone Linda Phillips Primary Care Provider [phone] Encounter Details Date Type Department Care Team (Late st Contact Info) Description 12/20/2023 Interpretation Only Radiology Library at [facility] [place] [address] Flynn Jara MD [facility] [place] [address] Social History Tobacco Use Types Packs/Day Years [...] Jara MD IMG FILM LIBRARY OR DERABLES [facility]NOTE 2[facility] [place], [place] documented in this encounter Visit Diagnoses Not on filedocumented in this encounter Care Teams Car Conditioner Relationship Specialty Start Date End Date Linda Phillips [place] [address] PCP - General Family Medicine 08/26/18 documented as of this encounter
--- OUTSIDE RECORDS SUMMARY | 2024-07-26 20:15 | XMS_ITS | Encounter Summary ---
Author Organization [facility] Address [facility] [place] [address] Care Team Providers Care Airborne Weapons Technical Manager Name Role Phone Linda Phillips Primary Care Provider [phone] Encounter Details Date Type Department Care Team (Latest Contact Info) Description 09/16/2018 9:43 PM EST - 09/16/2018 11:59 PM EST Hospital Encounter Laboratory [facility] [place] [address] Discharge Disposition: Home Social History Tobacco Use [...] Procedure Name Priority Date/Time Associated Diagnosis Comments OFFSET DUPLICATING MACHINE OPERATOR CYTOLOGY INTERPRETATION Routine 09/16/2018 6:00 PM EST OFFSET DUPLICATING MACHINE OPERATOR CYTOLOGY FINAL REPORT Routine 09/16/2018 6:00 PM EST documented in this encounter Results * Regulatory Compliance Specialist Cytology Final Report (09/16/2018 6:00 PM EST) Regulatory Compliance Specialist Cytology Final Report [id number] ? Location: [facility] The signing pathologist has (i) examined the relevant preparation(s) for the specimen(s) and (ii) rendered or confirmed the diagnosis(es). . ? Regulatory Compliance Specialist Final DIAGNOSIS Normal Negative for intraepithelial lesion or malignancy (NILM). For consensus guidelines for the management of cervical cancer screening test results, please see: ?? [email or web address].asccp.o rg . Electronically signed by: ??Reji PEÑA(ASCP)Migdalia Verified: ??09/29/2018 ?Security Agent Performed at: ??-[facility] [place], [place], [place] HPV RESULTS Not applicable (HPV testing [...] I.U.D.?: ?No Pelvic Radiation: ? No Prior OFFSET DUPLICATING MACHINE OPERATOR Therapy?: ? No Hist Abnl Pap/Biopsy?: ??No Hist of HPV Vaccine?: ?? Yes Hist of Smoking?: ? No Hist of ELKE exposure?: ??No Clinical Data, Significant Therapy and Clinical Impression ?? : ?? _ Referring Identifier: ?(not provided) This Pap Test has been evaluated with the assistance of the [employer] International[employer] Pap Test Imaging System. Note: The Pap test is a screening test for cervical cancer with an inherent false-negative rate dependent upon several variables. For further information please contact the [facility]. Reference: Portia RAMIREZ. Fur Feeder of Pap Smear Results. In: Kyara BS, Nick HH, ed. ??The Pap Smear. [place]: Akil, 2002: 71-77. . CLINICAL INFORMATION [facility] 09/16/2018 6:00 PM EST Татьяна Bah APRN PATHOLOGY/CYT OLOGY ORDERABLES Performing Organization Address [facility] Co de Phone Number [facility] [place] [address] * OFFSET DUPLICATING MACHINE OPERATOR Cytology Interpretation (09/16/2018 6:00 PM EST) Regulatory Compliance Specialist Cytology Interpretation [facility] Comment:Regulatory Compliance Specialist Cytology Final R eport Endocervical Component Not Present [facility] AP Specimen 09/16/2018 6:00 PM EST 09/29/2018 1:45 PM EST Татьяна Bah APRN PATHOLOGY/CYT OLOGY ORDERABLES Performing Organization Address City/[facility] Co de Phone Number [facility] [place] [address] documented in this encounter Visit Diagnoses Not on filedocumented in this encounter Care Teams Airborne Weapons Technical Manager Relationship Specialty Start Date End Date Linda Phillips [place] [address] PCP - General Family Medicine 08/26/18 documented as of this encounter
--- OUTSIDE RECORDS SUMMARY | 2024-07-26 20:15 | XMS_ITS | Encounter Summary ---
Author Organization [facility] Address [address] [place] [address] Care Team Providers Care Assistant Store Director Name Role Phone Unavailable Primary Care Provider Unavailabl e Encounter Details Date Type Department Care Team (Late st Contact Info) Description 05/24/2024 Lab Requisition [facility] Pathology & Laboratory Medicine - [facility] [address] [place] [address] Outr Resulting Lab, Provider Social History Tobacco [...] U Negative <1 ng/mL 05/25/2024 11:47 EDT [facility] Urine URINE / Unknown 05/24/2024 8 :45 EDT 05/24/2024 17:17 EDT Narrative [facility] - 05/25/2024 11:47 EDT Testing performed by: [facility] [address] [place] [address], [address], [place] [address] Blogs Manager: Micah Box MD; CLIA # [id number] us Provider Outr Resulting Lab URINALYSIS ORDERABLE S Final Result [facility] [address] [facility], [address] [phone] documented in this encounter Visit Diagnoses Not on filedocumented in this encounter
--- OUTSIDE RECORDS SUMMARY | 2024-07-26 20:15 | XMS_ITS | Encounter Summary ---
Author Organization [facility] Address [address] [place] [address] Care Team Providers Care Manager Of Learning Name Role Phone Unavailable Primary Care Provider Unavailabl e Encounter Details Date Type Department Care Team (Late st Contact Info) Description 02/02/2024 Lab Requisition [facility] Pathology & Laboratory Medicine - [facility] [address] [place] [address] Outr Resulting Lab, Provider Social History Tobacco [...] U Negative <1 ng/mL 02/03/2024 11:[address] [facility] Urine URINE / Unknown 02/02/2024 9 :40 EDT 02/02/2024 21:[address] [facility] - 02/03/2024 11:19 EDT Testing performed by: [facility] [address] [place] [address], [address], [place] [address] A R Collections Rep: Micah Box MD; CLIA # [id number] us Provider Outr Resulting Lab URINALYSIS ORDERABLE S Final Result [facility] [address] [facility], [address] [phone] documented in this encounter Visit Diagnoses Not on filedocumented in this encounter
--- OUTSIDE RECORDS SUMMARY | 2024-07-26 20:15 | XMS_ITS | Encounter Summary ---
Author Organization [facility] Address [address] [place] [address] Care Team Providers Care Shot Dropper Name Role Phone Unavailable Primary Care Provider Unavailabl e Encounter Details Date Type Department Care Team (Late st Contact Info) Description 12/09/2022 Lab Requisition [facility] Pathology & Laboratory Medicine - [facility] [address] [place] [address] Outr Resulting Lab, Provider Social History Tobacco [...] Surface Ag Negative Negative 12/10/2022 11:[address] [facility] Hep C Antibody Negative Negative 12/10/2022 11:[address] [facility] Hepatitis A Antibody, IgM Negative Negative 12/10/2022 11:[address] [facility] Comment:The results of this assay can be falsely lowered due to the consumption of Biotin. Hepatitis B Core Ab, Total Negative Negative 12/10/2022 11:[address] [facility] Blood VENOUS BLOOD / Unknown 12/08/2022 16:40 EDT 12/09/2022 19:37 EDT us Provider Outr Resulting Lab CHEMISTRY & BLOOD GA S ORDERABLES Final Result [facility] [address] [place] [address] documented in this encounter Visit Diagnoses Not on filedocumented in this encounter
--- OUTSIDE RECORDS SUMMARY | 2024-07-26 20:15 | XMS_ITS | Encounter Summary ---
Author Organization [facility] Address [facility] [place] [address] Care Team Providers Care Model Home Sales Greeter Name Role Phone Linda Phillips Primary Care Provider [phone] Encounter Details Date Type Department Care Team (Latest Contact Info) Description 04/14/2019 9:09 PM EDT - 04/14/2019 11:59 PM EDT Hospital Encounter Laboratory [facility] [place] [address] Discharge Disposition: Home Social History Tobacco Use [...] PM EDT) Chlamydia Gene Amp Negative Negative [facility] Comment: This assay was performed in the [facility] Clinical Genomics [facility] Laboratory using the vikram?? CT/NG v2.0 Test ([employer] The vikram?? CT/NG v2.0 Test [...] asymptomatic individuals. GC Gene Amp Negative Negative [facility] Comment: This assay was performed in the [facility] Clinical [facility] Laboratory using the vikram?? CT/NG v2.0 Test ([employer] The vikram?? CT/NG v2.0 Test is [...] / WKS Fani Jay APRN MOLECULAR ORDERABLES [facility] [place] [address] documented in this encounter Visit Diagnoses Not on filedocumented in this encounter Care Teams Model Home Sales Greeter Relationship Specialty Start Date End Date Linda Phillips PA [address] [place] [address] PCP - General Family Medicine 08/26/18 documented as of this encounter
--- OUTSIDE RECORDS SUMMARY | 2024-07-26 20:15 | XMS_ITS | Encounter Summary ---
Author Organization [facility] Address [address] [place] [address] Care Team Providers Care Fire Sprinkler Service Technician Name Role Phone Unavailable Primary Care Provider Unavailabl e Encounter Details Date Type Department Care Team (Late st Contact Info) Description 02/02/2024 Lab Requisition [facility] Pathology & Laboratory Medicine - [facility] [address] [place] [address] Outr Resulting Lab, Provider Social History Tobacco [...] Surface Ag Negative Negative 02/03/2024 11:06 EDT [facility] Blood VENOUS BLOOD / Unknown 02/02/2024 11:35 EDT 02/02/2024 21:28 EDT us Provider Outr Resulting Lab CHEMISTRY & BLOOD GA S ORDERABLES Final Result [facility] [address] [place] [address] * HEPATITIS C AB W REFLEX TO HCV RNA BY PCR (02/02/2024 11:35 EDT) Hep C Antibody Negative Negative 02/03/2024 11:39 EDT [facility] Blood VENOUS BLOOD / Unknown 02/02/2024 11:35 EDT 02/02/2024 21:28 EDT us Provider Outr Resulting Lab CHEMISTRY & BLOOD GA S ORDERABLES Final Result [facility] [address] [place], [place] [address] documented in this encounter Visit Diagnoses Not on filedocumented in this encounter
--- OUTSIDE RECORDS SUMMARY | 2024-07-26 20:15 | XMS_ITS | Clinical Summary ---
Author Organization [facility] Address [address] [place] [address] Care Team Providers Care Plant Anatomist Name Role Phone Unavailable Primary Care Provider Unavailabl e Encounters Date Type Department Care Team Description 05/24/2024 Lab Requisition [facility] Pathology & Laboratory Medicine - [facility] [address] [place] [address] Outr Resulting Lab, Provider from Last 3 [...] U Negative <1 ng/mL 05/25/2024 11:47 EDT [facility] Urine URINE / Unknown 05/24/2024 8 :45 EDT 05/24/2024 17:17 EDT Narrative [facility] - 05/25/2024 11:47 EDT Testing performed by: [facility] [address], [address], [place] [address] Floor Scraper: Micah Box MD; CLIA # [id number] us Provider Outr Resulting Lab URINALYSIS ORDERABLE S Final Result [facility] [address], [address] [place] [address], [facility] [phone] * HEPATITIS C AB W REFLEX TO HCV RNA BY PCR (02/02/2024 11:35 EDT) Hep C Antibody Negative Negative 02/03/2024 11:39 EDT [facility] Blood VENOUS BLOOD / Unknown 02/02/2024 11:35 EDT 02/02/2024 21:28 EDT us Provider Outr Resulting Lab CHEMISTRY & BLOOD GA S ORDERABLES Final Result [facility] [address] [place] [address] from Last 3 Months or Most Recently Relevant to Health Maintenance
--- OUTSIDE RECORDS SUMMARY | 2024-07-26 20:15 | XMS_ITS | Encounter Summary ---
Author Organization [facility] Address [address] [place] [address] Care Team Providers Care Bridge Worker Apprentice Name Role Phone Unavailable Primary Care Provider Unavailabl e Encounter Details Date Type Department Care Team (Late st Contact Info) Description 12/09/2022 Lab Requisition [facility] Pathology & Laboratory Medicine - [facility] [address] [place] [address] Outr Resulting Lab, Provider Social History Tobacco [...] 4th Generation Negative Negative 12/10/2022 10:37 EDT [facility] Comment:If acute HIV-1 infec tion is suspected in a high risk patient, submit plasma specimen for HIV-1 RNA quantitation test. Blood VENOUS BLOOD / Unknown 12/08/2022 16:40 EDT 12/09/2022 19:37 EDT Narrative [facility] - 12/10/2022 10:37 EDT Fourth Generation assay performed on the Siemens Centaur XPT. us Provider Outr Resulting Lab IMMUNOLOGY AND SEROL OGY ORDERABLES Final Result Performing Organization Address [facility]/State/ZIP Co de Phone Number [facility] [address] [place] [address] documented in this encounter Visit Diagnoses Not on filedocumented in this encounter
--- OUTSIDE RECORDS SUMMARY | 2024-07-26 20:15 | XMS_ITS | Clinical Summary ---
Author Organization [facility] Address [facility] [place] [address] Care Team Providers Care Key Maker Name Role Phone Linda Phillips Primary Care Provider [phone] Allergies Active Allergy Reactions Criticality Noted Date [...] Procedure Name Priority Date/Time Associated Diagnosis Comments HIGHWAY TRAFFIC CONTROL TECHNICIAN CYTOLOGY FINAL REPORT Routine 12/05/2021 12:00 PM EDT from Last 3 Months or Most Recently Relevant to Health Maintenance Results * Sr Risk Management Consultant Cytology Final Report (12/05/2021 12:00 PM EDT) Sr Risk Management Consultant Cytology Final Report [id number] ? Location: [facility] The signing pathologist has (i) examined the relevant preparation(s) for the specimen(s) and (ii) rendered or confirmed the diagnosis(es). . ? Sr Risk Management Consultant Final DIAGNOSIS Normal Negative for intraepithelial lesion or malignancy (NILM). For consensus guidelines for the management of cervical cancer screening test results, please see: ?? [email or web address].[email or web address].o rg . Electronically signed by: ?Akosua PEÑA(ASCP)Gómez Verified: ??12/24/2021 16:16 ??Certified Lactation Educator Performed at: ??-[facility] Dept. of Pathology, [place], [place] HPV RESULTS HPV testing either not indicated or not requested by clinician. To add on HPV testing, please submit a Pathology Order Update ([id number]) via [email or web address] or contact the Client Response Center at [...] ? No Hist Abnl Pap/Biopsy?: ??No Prior HIGHWAY TRAFFIC CONTROL TECHNICIAN Therapy?: ? No Hist of HPV Vaccine?: ?? No ICD Diagnosis: ?Z12.4 Encounter for screening for malignant neoplasm of cervix Referring Identifier: ?(not provided) Clinical Data, Significant Therapy and Clinical Impression ?? : ?? _ Referring Identifier: ??_ This Pap Test has been evaluated with the assistance of the OccasionPrep Pap Test Imaging System. Note: . CLINICAL INFORMATION The Pap test is a screening test for cervical cancer with an inherent false-negative rate dependent upon several variables. For further information please contact the [facility] Laboratory. Reference: Portia RAMIREZ. Feed Grinder of Pap Smear Results. In: Kyara BS, Nick HH, ed. ??The Pap Smear. [place]: Akil, 2002: 71-77. [facility] 12/05/2021 12:0 0 PM EDT Narrative Resulting Agency Comment Spec In Lab / WKS Niki Perez APRN PATHOLOGY/CYTOLOGY O RDERABLES [facility] [place] [address] from Last 3 Months or Most Recently Relevant to Health Maintenance Care Teams Key Maker Relationship Specialty Start Date End Date Linda Phillips PA [address] [place], [place] [id number] PCP - General Family Medicine 08/26/18
--- OUTSIDE RECORDS SUMMARY | 2024-07-26 20:15 | XMS_ITS | Encounter Summary ---
Author Organization [facility] [place] [address] Care Team Providers Care Burlap Roll Coverer Name Role Phone Linda Phillips Primary Care Provider [phone] Encounter Details Date Type Department Care Team (Late st Contact Info) Description 12/20/2023 Ancillary Procedure Radiology Library at [facility] [address] Flynn Jara MD [facility] [place] [address] Social History Tobacco Use Types Packs/Day Years [...] Jara MD IMG FILM LIBRARY OR DERABLES [facility] [place], [place] documented in this encounter Visit Diagnoses Not on filedocumented in this encounter Care Teams Burlap Roll Coverer Relationship Specialty Start Date End Date Linda [place] [address] PCP - General Family Medicine 08/26/18 documented as of this encounter
--- OUTSIDE RECORDS SUMMARY | 2024-07-26 20:15 | XMS_ITS | Encounter Summary ---
Author Organization [facility] Address [address] [place] [address] Care Team Providers Care Boiler Inspector Name Role Phone Unavailable Primary Care Provider Unavailabl e Encounter Details Date Type Department Care Team (Late st Contact Info) Description 02/03/2024 Lab Requisition [facility] Pathology & Laboratory Medicine - [facility] [address] [place] [address] [place] [address] Encounter for supervision of normal , unspecified, [...] Imaging System with Manual Evaluation 02/09/2024 13:49 T [facility] Specimen Adequacy Satisfactory for Evaluation - transformation zone component present Scant squamous epithelial component due to contaminant, possibly lubricant or other vaginal contaminant. 02/09/2024 13:49 T [facility] General Categorization Negative for intraepithelial lesion or malignancy 02/09/2024 13:49 EDT [facility] Attestation . 02/09/2024 13:49 EDT [facility] at 1349 Clinical History See below 02/09/20 13:49 EDT [facility] Performing Lab [facility] 02/09/2024 13:49 EDT [facility] Scanned Images 02/09/2024 13:49 EDT [facility] Pap Test CERVIX UTERI STRUCTURE / Unknown 02/02/2024 10:00 EDT 02/03/2024 14:20 EDT Emmie GREEN PATHOLOGY ORDERABLES Final Re sult [facility] [address] [place], [place] [id number] documented in this encounter Visit Diagnoses Diagnosis Encounter for supervision of normal , unspecified, unspecified trimester Encounter for supervision of normal , unspecified, first trimester documented in this encounter
--- OUTSIDE RECORDS SUMMARY | 2024-07-26 20:15 | XMS_ITS | Encounter Summary ---
Author Organization [facility] Address [address] [place] [address] Care Team Providers Care Heading And Priming Operator Name Role Phone Unavailable Primary Care Provider Unavailabl e Encounter Details Date Type Department Care Team (Late st Contact Info) Description 12/09/2022 Lab Requisition [facility] Pathology & Laboratory Medicine - [facility] [address] [place] [address] Outr Resulting Lab, Provider Social History Tobacco [...] Ab Positive See Note 12/10/2022 10:17 EDT [facility] Comment:Presence of detectab le Varicella Zoster virus IgG antibodies. Blood VENOUS BLOOD / Unknown 12/08/2022 16:40 EDT 12/09/2022 19:38 EDT us Provider Outr Resulting Lab IMMUNOLOGY AND SEROL OGY ORDERABLES Final Result [facility] [address] [place] [address] * RUBELLA IGG ANTIBODY (12/08/2022 16:40 EDT) Rubella IgG Ab Positive See Note 12/10/2022 10:19 EDT [facility] Comment:Positive for IgG ant ibodies to Rubella virus. Blood VENOUS BLOOD / Unknown 12/08/2022 16:40 EDT 12/09/2022 19:38 EDT us Provider Outr Resulting Lab CHEMISTRY & BLOOD GA S ORDERABLES Final Result [facility] [address] [place] [address] documented in this encounter Visit Diagnoses Not on filedocumented in this encounter
--- OUTSIDE RECORDS SUMMARY | 2024-07-26 20:15 | XMS_ITS | Encounter Summary ---
Author Organization [facility] Address [address] [place] [address] Care Team Providers Care Solderer Assembler Name Role Phone Unavailable Primary Care Provider Unavailabl e Encounter Details Date Type Department Care Team (Late st Contact Info) Description 02/02/2024 Lab Requisition [facility] Pathology & Laboratory Medicine - [address] [address] Outr Resulting Lab, Provider Social History Tobacco [...] 4th Generation Negative Negative 02/03/2024 11:54 EDT [facility] Comment:If acute HIV-1 infec tion is suspected in a high risk patient, submit plasma specimen for HIV-1 RNA quantitation test. Blood VENOUS BLOOD / Unknown 02/02/2024 11:35 EDT 02/02/2024 21:28 EDT Narrative [facility] - 02/03/2024 11:54 EDT Fourth Generation assay performed on the Siemens Centaur XPT. us Provider Outr Resulting Lab IMMUNOLOGY AND SEROL OGY ORDERABLES Final Result Performing Organization Address [facility]/State/ZIP Co de Phone Number [facility] [address] [place] [address] documented in this encounter Visit Diagnoses Not on filedocumented in this encounter
--- OUTSIDE RECORDS SUMMARY | 2024-07-26 20:15 | XMS_ITS | Encounter Summary ---
Author Organization [facility] [place] [address] Care Team Providers Care Operator Prefinish Name Role Phone Migdalia Kilpatrick MD Primary Care Provider [phone] Encounter Details Date Type Department Care Team (Late st Contact Info) Description 08/08/[address] [address] Kendra Garcia RN Social History Tobacco Use [...] on filedocumented in this encounter Care Teams Operator Prefinish Relationship Specialty Start Date End Date Migdalia Kilpatrick MD [address] [place] [address] PCP - General 07/29/10 08/25/18 documented as of this encounter
--- OUTSIDE RECORDS SUMMARY | 2024-07-26 20:15 | XMS_ITS | Encounter Summary ---
Author Organization [facility] Address [facility] [place] [address] Care Team Providers Care Assistant Manager/Embalmer Name Role Phone Linda Phillips Primary Care Provider [phone] Reason for Visit * Reason Comments Skin Check * Consultation (Routine) - Specialty Diagnoses / Procedures Referred By Contac t Referred To Contact Dermatology Diagnoses Acne, unspecified Acne Procedures Consult Shyanne Torres APRN [address] [place] [address] Ronaldo Henning MD [address] [place] [address], [facility] [place] [address] Referral ID Status Reason Start Date Expiration Date V isits Requested Visits Authorized [id number] Consult, Test & Treat PCP Updated and/or Approved 02/21/2018 02/21/2019 6 6 Encounter Details Date Type Department Care Team (Late st Contact Info) Description 08/26/2018 10:30 AM EST Office Visit Dermatology at [address] [address] Ronaldo Henning MD [address] [place] [address], [facility] [place], [place] [id number] Allergic contact dermatitis, unspecified trigger Social History [...] 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
--- OUTSIDE RECORDS SUMMARY | 2024-07-26 20:15 | XMS_ITS | Encounter Summary ---
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 Niki Perez, COMMUNITY DEVELOPMENT PLANNER [address] [place] [address] [facility] [address] [place] [phone] Referral ID Status Reason Start Date Expiration Date Visits Requested Visits Authorized [id number] Authorized Consult, Test & Treat PCP Updated and/or Approved 12/22/2023 12/21/2024 6 6 Encounter Details Date Type Department Care Team (Latest Contact Info) Description 12/29/2023 Transcribe Orders eDH Incoming Referrals [phone] Linda Phillips PA [address] [place] [address] Elevation of levels of liver transaminase [...] levels documented in this encounter Care Teams Jewel Hole Finish Opener Relationship Specialty Start Date End Date Linda Phillips PA [address] [place] [address] PCP - General Family Medicine 08/26/18 documented as of this encounter
--- OUTSIDE RECORDS SUMMARY | 2024-07-26 20:15 | XMS_ITS | Encounter Summary ---
Author Organization [facility] Address [address] [place] [address] Care Team Providers Care Wedding Photographer Name Role Phone Unavailable Primary Care Provider Unavailabl e Encounter Details Date Type Department Care Team (Late st Contact Info) Description 02/02/2024 Lab Requisition [facility] Pathology & Laboratory Medicine - [facility] [address] [place] [address] Outr Resulting Lab, Provider Social History Tobacco [...] Ab Positive See Note 02/03/2024 11:56 EDT [facility] Comment:Presence of detectab le Varicella Zoster virus IgG antibodies. Blood VENOUS BLOOD / Unknown 02/02/2024 11:35 EDT 02/02/2024 21:28 EDT us Provider Outr Resulting Lab IMMUNOLOGY AND SEROL OGY ORDERABLES Final Result [facility] [address] [place], [place] [address] * RUBELLA IGG ANTIBODY (02/02/2024 11:35 EDT) Rubella IgG Ab Positive See Note 02/03/2024 12:05 EDT [facility] Comment:Positive for IgG ant ibodies to Rubella virus. Blood VENOUS BLOOD / Unknown 02/02/2024 11:35 EDT 02/02/2024 21:28 EDT us Provider Outr Resulting Lab CHEMISTRY & BLOOD GA S ORDERABLES Final Result [facility] [address] [place] [address] documented in this encounter Visit Diagnoses Not on filedocumented in this encounter
--- OUTSIDE RECORDS SUMMARY | 2024-07-26 20:15 | XMS_ITS | Encounter Summary ---
Author Organization [facility] Address [address] [place] [address] Care Team Providers Care Monotype Setter Name Role Phone Unavailable Primary Care Provider Unavailabl e Encounter Details Date Type Department Care Team (Late st Contact Info) Description 02/02/2024 Lab Requisition [facility] Pathology & Laboratory Medicine - [facility] [address] [place], [place] [address] Outr Resulting Lab, Provider Social History Tobacco [...] gonorrhoeae Result Negative Negative 02/04/2024 12:49 EDT [facility] Chlamydia trachomatis Result Negative Negative 02/04/2024 12:49 EDT [facility] Pap Test CERVIX UTERI STRUCTURE / Unknown 02/02/2024 10:00 EDT 02/03/2024 9:05 EDT us Provider Outr Resulting Lab MICROBIOLOGY - GENER AL ORDERABLES Final Result [facility] [address] [place], [place] [address] documented in this encounter Visit Diagnoses Not on filedocumented in this encounter
[2024-07-26 20:41] VITALS: BP 131/76; PULSE 87; TEMP 36.8
--- NOTE | 2024-07-27 10:44 | W.OBNST ---
Date of service: 07/26/24 Time of Service: 10:44 NST Evaluation Reason for NST Reasons for Nonstress Test: LABOR Gestational Age Gestational Age in Weeks and Days: 37 Weeks and 0Days Test and Monitor Explained Test/Monitor Explained: Test Explained, Monitor Explained and Patient Verbalized Understanding Vital Signs Blood Pressure: 131/76 Pulse: 87 Temperature: 98.2 F NST Information Date on Monitor: 07/26/24 Time on Monitor: 20:10 Date off Monitor: 07/26/24 Time off Monitor: 20:55 Total Time on Monitor: 45 NST Interventions: PO Hydration Contraction Frequency: irreg NST Evaluation Patient States Movement: Present FHR Baseline: 155 Variability: Moderate 6-25 bpm Accelerations: Prolonged Decelerations: None NST Results: Reactive Note Ultrasound Done: N/A. NST Note Note: Karina was at her childbirth class and was experiencing cramping. She came to the center for labor evaluation. No evidence of labor. She was discharged with a review of signs of labor. NST Reviewed and Verified by: Joana Goddard
[2024-07-27 10:45] VITALS: BP 131/76; PULSE 87; TEMP 36.8
== END 2024-07-26 21:27 | disposition home health service (06) ==
LOC: BCD 20:18 → OBS 20:24
PROVIDERS: PCP Nurse Practitioner; Visit Provider Advanced Practice Midwife
DX: O47.1 False labor at or after 37 completed weeks of gestation (principal); Z3A.37 37 weeks gestation of pregnancy
CPT/HCPCS: 59025

== ENCOUNTER 2024-08-08 08:19 | Inpatient (IN) | payer BC, SELFPAY ==
[2024-08-08] VITALS (22 sets, daily range): BP systolic 112–137; BP diastolic 69–85; PULSE 70–90; RESP 17–18; TEMP 36.7–38.2; O2SAT 99
[2024-08-08 08:21] LABS: ROM Plus Positive
[2024-08-08 08:43] LABS: HCT 38.7 % (36.0-46.0); HGB 12.4 g/dL (11.2-15.7); MCV 94 fL (80-95); MPV 11.4 fL (8.0-11.0); Platelet Count 236 10^3/uL (130-400); RBC 4.13 10^6/uL (3.93-5.22); RDW 13.9 % (11.7-14.6); WBC 11.98 10^3/uL (4.4-10.8)
--- NOTE | 2024-08-08 08:56 | W.OBNST ---
Date of service: 08/08/24 Time of Service: 09:00 NST Evaluation Reason for NST Reasons for Nonstress Test: OTHER, SEE COMMENT Reason for NST Other: rule out rupture Gestational Age Gestational Age in Weeks and Days: 38 Weeks and 6Days Test and Monitor Explained Test/Monitor Explained: Test Explained, Monitor Explained and Patient Verbalized Understanding Vital Signs Blood Pressure: 134/82 Pulse: 77 Temperature: 98.0 F NST Information Date on Monitor: 08/08/24 Time on Monitor: 07:54 Date off Monitor: 08/08/24 Time off Monitor: 08:17 Total Time on Monitor: 23 NST Interventions: PO Hydration Contraction Frequency: 3-5 NST Evaluation Patient States Movement: Present FHR Baseline: 150 Variability: Moderate 6-25 bpm Accelerations: 15x15 Decelerations: None NST Results: Reactive Note Ultrasound Done: N/A. NST Note Note: NST is reactive and reassuring, admitted for PROM NST Reviewed and Verified by: Joana Leung
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
--- NOTE | 2024-08-08 11:39 | W.PM.OBNL1 ---
Date of service: 08/08/24 Time of Service: 11:30 Informed Consent Informed Consent: Induction of Labor and Risk,Benefits,Alternatives Discussed Pelvic Exam Comments: deferred due to PROM and recent SSE did not indicate any dilation Contractions Monitor Mode: Palpation Contraction Frequency(min): 6-7 Contraction Duration(sec): 80-120 Intensity: Moderate Fetus A Monitor: External (US) Heart Rate Baseline: 135 Variability: Minimal (1-5 BPM) Accelerations: 15 X 15 Decelerations: None Assessment and Plan Assessment and plan (1) PROM with onset of labor within 24 hours of rupture: Status: Acute Assessment and plan: 1. due to contractions becoming less frequent, Karina and Fabio have agreed to augmenting labor with misoprostol at this time. We discussed augmentation with misoprostol, pitocin or expectant management. Due to 14 hour status post ROM she would like to try misoprostol and reassess in 4 hours. KH Objective Abnormal lab results 08/08/24 Range/Units 08:35 WBC 11.98 H (4.4-10.8) 10^3/uL MPV 11.4 H (8.0-11.0) fL Temp Pulse Resp BP Pulse Ox 98.7 F 70 17 124/77 99 08/08/24 11:15 08/08/24 10:12 08/08/24 08:28 08/08/24 10:12 08/08/24 08:28 Laboratory Results WBC 11.98 10^3/uL (4.4-10.8) H 08/08/24 08:35 RBC 4.13 10^6/uL (3.93-5.22) 08/08/24 08:35 Hgb 12.4 g/dL (11.2-15.7) 08/08/24 08:35 Hct 38.7 % (36.0-46.0) 08/08/24 08:35 MCV 94 fL (80-95) 08/08/24 08:35 MCH 30.0 pg (27.0-33.0) 08/08/24 08:35 MCHC 32.0 % (32.0-36.0) 08/08/24 08:35 RDW 13.9 % (11.7-14.6) 08/08/24 08:35 Plt Count 236 10^3/uL (130-400) 08/08/24 08:35 MPV 11.4 fL (8.0-11.0) H 08/08/24 08:35 Membranes Rupture Positive 08/08/24 08:04 ABO/Rh B Positive 08/08/24 08:35 Antibody Screen NEGATIVE 08/08/24 08:35 Vital Signs Reviewed: Yes Subjective Interval history since last seen: Karina endorses that contractions are less frequent. She prefer to use misoprostol for cervical ripening / induction agent at this time. We have discussed it's use, expected effects, potential adverse effects and what we do to mitigate them. She agrees to augmentation of her labor at this time. Results Hemoglobin/Hematocrit: Hgb 12.4 g/dL (11.2-15.7) 08/08/24 08:35 Hct 38.7 % (36.0-46.0) 08/08/24 08:35 Abnormal Lab Findings: Abnormal Labs 08/08/24 08:35 WBC 11.98 H MPV 11.4 H
[2024-08-08] MEDS: miSOPROStol 25 MCG TAB 50 MCG PO (11:44)
--- NOTE | 2024-08-08 15:19 | W.PM.OBNL1 ---
Date of service: 08/08/24 Time of Service: 15:19 Informed Consent Informed Consent: Induction of Labor and Risk,Benefits,Alternatives Discussed Pelvic Exam Comments: will do VE at 1700 for baseline unless otherwise indicated Contractions Monitor Mode: Palpation Contraction Frequency(min): 3 Contraction Duration(sec): 60-90 Intensity: Moderate Fetus A Monitor: Doppler Heart Rate Baseline: 140 Assessment and Plan Assessment and plan (1) PROM with onset of labor within 24 hours of rupture: Status: Acute Assessment and plan: 1. Increased contractions since misoprostol, will hold dose at this time 2. Support labor and frequent position changes 3. Will plan VE at 1700 to determine progress and make plan for further management. KH Objective Abnormal lab results 08/08/24 Range/Units 08:35 WBC 11.98 H (4.4-10.8) 10^3/uL MPV 11.4 H (8.0-11.0) fL Temp Pulse Resp BP Pulse Ox 98.6 F 71 18 137/85 99 08/08/24 13:19 08/08/24 13:48 08/08/24 13:48 08/08/24 13:48 08/08/24 08:28 Laboratory Results WBC 11.98 10^3/uL (4.4-10.8) H 08/08/24 08:35 RBC 4.13 10^6/uL (3.93-5.22) 08/08/24 08:35 Hgb 12.4 g/dL (11.2-15.7) 08/08/24 08:35 Hct 38.7 % (36.0-46.0) 08/08/24 08:35 MCV 94 fL (80-95) 08/08/24 08:35 MCH 30.0 pg (27.0-33.0) 08/08/24 08:35 MCHC 32.0 % (32.0-36.0) 08/08/24 08:35 RDW 13.9 % (11.7-14.6) 08/08/24 08:35 Plt Count 236 10^3/uL (130-400) 08/08/24 08:35 MPV 11.4 fL (8.0-11.0) H 08/08/24 08:35 Membranes Rupture Positive 08/08/24 08:04 ABO/Rh B Positive 08/08/24 08:35 Antibody Screen NEGATIVE 08/08/24 08:35 Vital Signs Reviewed: Yes Subjective Interval history since last seen: Karina is working well with her contractions. Denies bloody show. Has had increased mucous discharge and continues to leak clear fluid. Results Hemoglobin/Hematocrit: Hgb 12.4 g/dL (11.2-15.7) 08/08/24 08:35 Hct 38.7 % (36.0-46.0) 08/08/24 08:35 Abnormal Lab Findings: Abnormal Labs 08/08/24 08:35 WBC 11.98 H MPV 11.4 H
--- NOTE | 2024-08-08 17:13 | W.PM.OBNL1 ---
Date of service: 08/08/24 Time of Service: 17:13 Informed Consent Informed Consent: Induction of Labor and Risk,Benefits,Alternatives Discussed Pelvic Exam Dilation: 1 Effacement (%): 80 station: -1 Cervix Position: posterior Consistency: soft BISHOPS Score(Cervical Ripeness Score): 8 Contractions Monitor Mode: Palpation Contraction Frequency(min): 3-5 Contraction Duration(sec): 60-90 Intensity: Moderate Fetus A Monitor: External (US) (just being applied, has been WNL by doppler) Heart Rate Baseline: 150 Assessment and Plan Assessment and plan (1) PROM with onset of labor within 24 hours of rupture: Status: Acute Assessment and plan: 1. Discussed intensity / effectiveness of contractions needs to be greater, patient is open to augmentation with pitocin if needed 2. Will obtain FHR tracing for 20 minutes and likely start pitocin augmentation. 3. Expect NVD Objective Abnormal lab results 08/08/24 Range/Units 08:35 WBC 11.98 H (4.4-10.8) 10^3/uL MPV 11.4 H (8.0-11.0) fL Temp Pulse Resp BP Pulse Ox 98.9 F 71 18 137/85 99 08/08/24 16:37 08/08/24 13:48 08/08/24 13:48 08/08/24 13:48 08/08/24 08:28 Laboratory Results WBC 11.98 10^3/uL (4.4-10.8) H 08/08/24 08:35 RBC 4.13 10^6/uL (3.93-5.22) 08/08/24 08:35 Hgb 12.4 g/dL (11.2-15.7) 08/08/24 08:35 Hct 38.7 % (36.0-46.0) 08/08/24 08:35 MCV 94 fL (80-95) 08/08/24 08:35 MCH 30.0 pg (27.0-33.0) 08/08/24 08:35 MCHC 32.0 % (32.0-36.0) 08/08/24 08:35 RDW 13.9 % (11.7-14.6) 08/08/24 08:35 Plt Count 236 10^3/uL (130-400) 08/08/24 08:35 MPV 11.4 fL (8.0-11.0) H 08/08/24 08:35 Membranes Rupture Positive 08/08/24 08:04 ABO/Rh B Positive 08/08/24 08:35 Antibody Screen NEGATIVE 08/08/24 08:35 Subjective Interval history since last seen: Karina is getting tired. Feels contractions are staying regular every 3-4 minutes. No bloody show Results Hemoglobin/Hematocrit: Hgb 12.4 g/dL (11.2-15.7) 08/08/24 08:35 Hct 38.7 % (36.0-46.0) 08/08/24 08:35 Abnormal Lab Findings: Abnormal Labs 08/08/24 08:35 WBC 11.98 H MPV 11.4 H
[2024-08-08] MEDS: Oxytocin/Normal Saline 30 UNIT/500 ML BAG 2 UNITS IV (18:15)
[2024-08-08] MEDS: Lactated Ringers 1,000 ML 125 ML IV (18:15)
[2024-08-08] MEDS: Normal Saline Flush 10 ML SYR IVP (18:35)
[2024-08-08] MEDS: Sertraline 50 MG TAB PO (18:40)
--- NOTE | 2024-08-08 19:31 | W.PM.OBNL1 ---
Date of service: 08/08/24 Time of Service: 19:31 Informed Consent Informed Consent: Induction of Labor and Risk,Benefits,Alternatives Discussed Pelvic Exam Comments: deferred Contractions Monitor Mode: External Contraction Frequency(min): 4-7 Contraction Duration(sec): 60-90 Intensity: Moderate Fetus A Monitor: External (US) Heart Rate Baseline: 150 Variability: Minimal (1-5 BPM) Categories: Category II CategoryII Plan of Care: Intrauterine Resuscitation (position changes and IV fluid bolus given), Team Huddle, Medical Consult (tracing reviewed by Dr. Metzger as well, no change in management at this time) and Continuous Monitoring/Observation Assessment and Plan Assessment and plan (1) PROM with onset of labor within 24 hours of rupture: Status: Acute Assessment and plan: 1. Pitocin augmentation has been started 2. IV fluid bolus due to minimal variability, + accelerations and no decelerations noted. 3. VS stable, remains afebrile 4. Tracing reviewed with team in huddle and with Dr. Metzger, continue present management 5. Continue to expect NVD Objective Abnormal lab results 08/08/24 Range/Units 08:35 WBC 11.98 H (4.4-10.8) 10^3/uL MPV 11.4 H (8.0-11.0) fL Temp Pulse Resp BP Pulse Ox 98.9 F 90 18 126/83 99 08/08/24 18:21 08/08/24 18:21 08/08/24 18:21 08/08/24 18:21 08/08/24 08:28 Laboratory Results WBC 11.98 10^3/uL (4.4-10.8) H 08/08/24 08:35 RBC 4.13 10^6/uL (3.93-5.22) 08/08/24 08:35 Hgb 12.4 g/dL (11.2-15.7) 08/08/24 08:35 Hct 38.7 % (36.0-46.0) 08/08/24 08:35 MCV 94 fL (80-95) 08/08/24 08:35 MCH 30.0 pg (27.0-33.0) 08/08/24 08:35 MCHC 32.0 % (32.0-36.0) 08/08/24 08:35 RDW 13.9 % (11.7-14.6) 08/08/24 08:35 Plt Count 236 10^3/uL (130-400) 08/08/24 08:35 MPV 11.4 fL (8.0-11.0) H 08/08/24 08:35 Membranes Rupture Positive 08/08/24 08:04 ABO/Rh B Positive 08/08/24 08:35 Antibody Screen NEGATIVE 08/08/24 08:35 Subjective Interval history since last seen: Karina is doing well with contractions Results Hemoglobin/Hematocrit: Hgb 12.4 g/dL (11.2-15.7) 08/08/24 08:35 Hct 38.7 % (36.0-46.0) 08/08/24 08:35 Abnormal Lab Findings: Abnormal Labs 08/08/24 08:35 WBC 11.98 H MPV 11.4 H
[2024-08-08] MEDS: Ondansetron 4 MG/2 ML VIAL IVP (20:14)
[2024-08-08] MEDS: Acetaminophen 325 MG TAB 650 MG PO (20:14)
[2024-08-08] MEDS: AMPICILLIN SODIUM 2 GM in Normal Saline 100 ML IVPB (20:57)
[2024-08-08 21:01] LABS: Abs Immature Grans 0.09 10^3/uL (0.0-0.06); Absolute Basophil Count 0.03 10^3/uL (0.0-0.2); Absolute Neutrophil Count 11.08 10^3/uL (1.2-6.7); Basophils % 0.2 %; Eosinophils % 0.8 %; HCT 36.8 % (36.0-46.0); Immature Grans % 0.6 %; Lymphocytes % 14.9 %; MCH 30.3 pg (27.0-33.0); MCHC 32.6 % (32.0-36.0); MCV 93 fL (80-95); MPV 11.4 fL (8.0-11.0); Monocytes % 7.2 %; Neutrophils % 76.3 %; Platelet Count 231 10^3/uL (130-400); RBC 3.96 10^6/uL (3.93-5.22); RDW 13.9 % (11.7-14.6); RDW-SD 47.9 fL; WBC 14.52 10^3/uL (4.4-10.8)
[2024-08-08 21:02] LABS: Absolute Eosinophil Count 0.12 10^3/uL (0.0-0.7); Absolute Lymphocyte Count 2.16 10^3/uL (1.2-3.4); Absolute Monocyte Count 1.05 10^3/uL (0.1-0.8)
[2024-08-09] VITALS (45 sets, daily range): BP systolic 113–143; BP diastolic 52–98; PULSE 70–123; RESP 16–18; TEMP 36.7–37.5; O2SAT 93–99; BMI 30.1
--- NOTE | 2024-08-09 00:53 | W.PM.OBNL1 ---
Date of service: 08/09/24 Time of Service: 00:53 Informed Consent Informed Consent: Induction of Labor and Risk,Benefits,Alternatives Discussed Contractions Monitor Mode: External Contraction Frequency(min): 2-4 Contraction Duration(sec): 60 Intensity: Moderate Fetus A Monitor: External (US) Heart Rate Baseline: 150 Variability: Minimal (1-5 BPM) Categories: Category II Accelerations: 10 X 10 Decelerations: None Assessment and Plan Assessment and plan (1) PROM with onset of labor within 24 hours of rupture: Status: Acute Assessment and plan: 1. Cotton Ginner has shared tracing information with Dr. Metzger, will inform of minimal change from to over past 3 hours and continued CAT II tracing due to minimal variability. 2. Continue with position changes and IV hydration 3. Pitocin increased to try to achieve more intense contractions, currently at 6 mu Objective Abnormal lab results 08/08/24 08/08/24 Range/Units 08:35 20:50 WBC 11.98 H 14.52 H (4.4-10.8) 10^3/uL MPV 11.4 H 11.4 H (8.0-11.0) fL Absolute Neutrophils 11.08 H (1.2-6.7) 10^3/uL Absolute Monocytes 1.05 H (0.1-0.8) 10^3/uL Temp Pulse Resp BP Pulse Ox 99.5 F 84 18 112/69 99 08/09/24 00:25 08/08/24 23:32 08/08/24 18:21 08/08/24 23:32 08/08/24 08:28 Laboratory Results WBC 14.52 10^3/uL (4.4-10.8) H 08/08/24 20:50 RBC 3.96 10^6/uL (3.93-5.22) 08/08/24 20:50 Hgb 12.0 g/dL (11.2-15.7) 08/08/24 20:50 Hct 36.8 % (36.0-46.0) 08/08/24 20:50 MCV 93 fL (80-95) 08/08/24 20:50 MCH 30.3 pg (27.0-33.0) 08/08/24 20:50 MCHC 32.6 % (32.0-36.0) 08/08/24 20:50 RDW 13.9 % (11.7-14.6) 08/08/24 20:50 Plt Count 231 10^3/uL (130-400) 08/08/24 20:50 MPV 11.4 fL (8.0-11.0) H 08/08/24 20:50 Immature Gran % 0.6 % 08/08/24 20:50 Neutrophils % 76.3 % 08/08/24 20:50 Lymphocytes % 14.9 % 08/08/24 20:50 Monocytes % 7.2 % 08/08/24 20:50 Eosinophils % 0.8 % 08/08/24 20:50 Basophils % 0.2 % 08/08/24 20:50 Nucleated RBC % 0.0 % (0.0-0.3) 08/08/24 20:50 Absolute Neutrophils 11.08 10^3/uL (1.2-6.7) H 08/08/24 20:50 Absolute Lymphocytes 2.16 10^3/uL (1.2-3.4) 08/08/24 20:50 Absolute Monocytes 1.05 10^3/uL (0.1-0.8) H 08/08/24 20:50 Absolute Eosinophils 0.12 10^3/uL (0.0-0.7) 08/08/24 20:50 Absolute Basophils 0.03 10^3/uL (0.0-0.2) 08/08/24 20:50 Membranes Rupture Positive 08/08/24 08:04 ABO/Rh B Positive 08/08/24 08:35 Antibody Screen NEGATIVE 08/08/24 08:35 Vital Signs Reviewed: Yes Subjective Interval history since last seen: Karina is feeling tired but working well with contractions. We discussed that baby can show signs of fatigue as well with currently less accelerations and decreased variability. Agrees to VE. Results Hemoglobin/Hematocrit: Hgb 12.0 g/dL (11.2-15.7) 08/08/24 20:50 Hct 36.8 % (36.0-46.0) 08/08/24 20:50 Abnormal Lab Findings: Abnormal Labs 08/08/24 08/08/24 08:35 20:50 WBC 11.98 H 14.52 H MPV 11.4 H 11.4 H Absolute Neutrophils 11.08 H Absolute Monocytes 1.05 H
--- NOTE | 2024-08-09 01:26 | OBCE_ITS ---
Date of service: 08/09/24 Time of Service: 01:26 Assessment and Plan Assessment and plan (1) PROM with onset of labor within 24 hours of rupture: Status: Acute Qualifiers: PROM gestational age: full term Qualified Code(s): O42.02 - Full-term premature rupture of membranes, onset of labor within 24 hours of rupture (2) Abnormal labor: Status: Acute Assessment and plan: Preop counseling: She was informed of the risks of procedure including risk of damage to bowel, bladder, and blood vessels during the time of the delivery. If any of those injuries were to occur she may require a repair at the time of surgery or blood transfusion or possible hysterectomy. I reviewed the risk of infection and the administration of IV Abx prior to the surgery. Her questions were answered and consent signed. (3) Maternal fever during labor: Status: Acute Assessment and plan: presumed chorioamnioitis. History of Present Illness History of Present Illness Chief Complaint: fever in labor, Arrest of dilation, IUP 39w0d, PROM Narrative: Pt is a 28yo G1 female currently 39w EGA who had SROM approximately 28hrs ago. At time of presentation to in am 08/08/24 sterile speculum exam performed and confirmed ROM. SVE deferred. No apparent cervical dilation. Oxytocin augmentation of labor performed with max Oxytocin concetration 6mu/min with regular contractions and no signigicant cervical change since admission. TM of 100.8 F at 21:00 tonight. Rx with Acetaminophen and Ampicillin and Gentamycin initiated. FHR category 1. Pt was counseled that despite regular painful contractions there had been no cervical change and with pt remote from delivery with presumed choriamnioitis I advised preoceeding to delivery Consults Consult date: 08/09/24 Requesting physician: Joana Leung Review of Systems Narrative: currently afebrile. tolerating contractions. All systems reviewed & are unremarkable except as noted in HPI and below PFSH All Active Problems (Updated 08/09/24 @ 01:48 by Cydney Metzger MD) Maternal fever during labor (Acute) Abnormal labor (Acute) PROM with onset of labor within 24 hours of rupture (Acute) Third trimester bleeding, antepartum (Acute) Heartburn (Acute) protonix escribed in Depression (Chronic) (Acute) Family history of thyroid disease in grandmother (Acute) Polycystic ovarian syndrome (Acute) Medical History Low lying placenta nos or without hemorrhage, first trimester Pelvic pain Pre-conception counseling Social History Smoking/Tobacco Use Status: Never Smoking risk assessment performed?: Yes Alcohol Intake: never Substance use type: does not use Housing: house Do you feel safe at home: Yes Do you feel safe in your relationship?: Yes Female Reproductive History Menstrual control method: none History History 2 1 Para 0 Hx # Term Pregnancies 0 Multiple births 0 Hx # Pregnancies 0 Ectopic pregnancies 0 AB induced 0 Hx Number of Living Children 0 AB spontaneous 0 Exam Narrative Exam Narrative: Pt comfortable in bed. Tolerating contractions. Const General: no acute distress Nutritional Appearance: well nourished Orientation: alert, awake and oriented x3 Chest Chest: deferred Resp Effort & Inspection: normal respiratory effort Auscultation: clear to auscultation bilaterally Cardio Rate: regular rate Rhythm: regular rhythm GI Palpation: soft (no focal uterine tenderness) Manual OB Exam: other (exam performed by JESUS ) Skin General skin exam: no rashes or lesions noted Neuro Cognition: normal cognition Speech: speech normal Extrem General: normal to inspection Psych Appearance: grossly normal Mental Status: mental status grossly normal Speech and Movement: speech and movement normal Mood: congruent mood Results Last Vital Signs Temp 99.5 F 08/09/24 00:25 Pulse 84 08/08/24 23:32 Resp 18 08/08/24 18:21 BP 112/69 08/08/24 23:32 Pulse Ox 99 08/08/24 08:28 Labs 08/08/24 20:50 Labs: Laboratory Results - last 24 hr 08/08/24 08/08/24 08/08/24 08:04 08:35 20:50 WBC 11.98 H 14.52 H RBC 4.13 3.96 Hgb 12.4 12.0 Hct 38.7 36.8 MCV 94 93 MCH 30.0 30.3 MCHC 32.0 32.6 RDW 13.9 13.9 Plt Count 236 231 MPV 11.4 H 11.4 H Immature Gran % 0.6 Neutrophils % 76.3 Lymphocytes % 14.9 Monocytes % 7.2 Eosinophils % 0.8 Basophils % 0.2 Nucleated RBC % 0.0 Absolute Neutrophils 11.08 H Absolute Lymphocytes 2.16 Absolute Monocytes 1.05 H Absolute Eosinophils 0.12 Absolute Basophils 0.03 Membranes Rupture Positive ABO/Rh B Positive Antibody Screen NEGATIVE
[2024-08-09] MEDS: ceFAZolin 2 GM/50 ML BAG IVPB (01:39)
--- NOTE | 2024-08-09 01:39 | ANES.PREOP_ITS ---
General Info Date of Service Date Performed: 08/09/24 Height: 5 ft 3 in Weight: 77.111 kg Body Mass Index (BMI): 30.1 Meds Allergies and Home Medications Allergies Allergy/AdvReac Type Severity Reaction Status Date / Time amoxicillin Allergy nausea Unverified 08/02/24 13:44 Penicillins Allergy Nausea Unverified 08/02/24 13:44 prednisone AdvReac Intermediate Wheezing Verified 08/02/24 13:44 seasonal Allergy Skin Rash Uncoded 08/02/24 13:44 spf AdvReac Skin Rash Uncoded 08/02/24 13:44 Home Medication ?Medication ?Instructions ?Recorded mv-mn no.97-folic 180 mcg-dha 25 1 tab PO 1XD 07/21/23 mg-herb no.293 25 mg chewable tablet (Alive Daily Support ) sertraline 50 mg tablet 50 mg PO DAILY 07/21/23 aspirin 81 mg tablet,delayed 81 mg PO DAILY #60 tabs 02/02/24 release pantoprazole 40 mg tablet,delayed 40 mg PO DAILY #60 tabs 04/26/24 release (Protonix) cetirizine 10 mg capsule (Zyrtec) 10 mg PO DAILY PRN 05/18/24 fluconazole 100 mg tablet 100 mg PO DAILY #1 tab 08/07/24 (Diflucan) Current Visit Medications: Current Medications Generic Name Dose Route Start Last Admin Trade Name Freq PRN Reason Stop Dose Admin Acetaminophen 650 mg 08/08/24 19:58 08/08/24 20:14 Acetaminophen 325 Mg Tab PO 650 mg Q6H PRN PRN Administration Citric Acid/Sodium Citrate 30 ml 08/09/24 02:00 Sodium Citrate 30 Ml Cup PO PREOP BAN Ringer's Solution 1,000 mls @ 200 mls/hr 08/08/24 11:45 IV INFUSION BAN Ringer's Solution 1,000 mls @ 125 mls/hr 08/08/24 17:30 08/08/24 18:15 IV 125 mls/hr INFUSION BAN Administration Oxytocin/Sodium Chloride 30 unit in 500 mls @ 2 mls/hr 08/08/24 17:30 08/09/24 01:00 Pitocin/Normal Saline IV 0 milliunits/min INFUSION BAN 0 mls/hr Titration Protocol 2 MILLIUNITS/MIN Ampicillin Sodium 2 gm/ Sodium 100 mls @ 200 mls/hr 08/08/24 20:30 08/08/24 21:54 Chloride IVPB Infused Q6H BAN Infusion Cefazolin Sodium/Dextrose 2 gm in 50 mls @ 100 mls/hr 08/09/24 01:30 08/09/24 01:39 Ancef Duplex IVPB 100 mls/hr PREOP BAN Administration Azithromycin 500 mg/ Sodium 250 mls @ 250 mls/hr 08/09/24 01:30 Chloride IVPB PREOP BAN Ringer's Solution 1,000 mls @ 200 mls/hr 08/09/24 01:30 IV INFUSION BAN Clindamycin Phosphate/Dextrose 900 mg in 50 mls @ 50 mls/hr 08/09/24 01:30 Cleocin In D5w IVPB PREOP BAN IV Miscellaneous Supplies 1 each 08/09/24 01:30 Iv Access IV DIRECTED BAN Ondansetron HCl 4 mg 08/08/24 19:58 08/08/24 20:14 Ondansetron 4 Mg/2 Ml Vial IVP 4 mg Q4H PRN PRN Administration Pantoprazole Sodium 40 mg 08/08/24 07:30 08/08/24 11:24 Pantoprazole 40 Mg Tabcr PO Not Given DAILY@0730 BAN Sertraline HCl 50 mg 08/08/24 08:30 08/08/24 18:40 Sertraline 50 Mg Tab PO 50 mg DAILY BAN Administration Sodium Chloride 0 ml 08/09/24 01:20 Normal Saline Flush 10 Ml Syr IVP PRN PRN Sodium Chloride 0 ml 08/09/24 08:30 Normal Saline Flush 10 Ml Syr IVP BID BAN Sodium Chloride 0 ml 08/09/24 01:20 Normal Saline 10 Ml Vial IJ DIRECTED PRN Terbutaline Sulfate 0.25 mg 08/08/24 11:37 Terbutaline 1 Mg/Ml Vial SC PRN PRN PFSH Active Problems Active Problems: Problem Status Onset Code PROM with onset of labor within 24 hours of rupture Acute O42.00 Third trimester bleeding, antepartum Acute O46.93 Heartburn Acute R12 Depression Chronic F32.A Acute Z34.90 Family history of thyroid disease in grandmother Acute Z83.49 Polycystic ovarian syndrome Acute E28.2 Medical History Medical History Low lying placenta nos or without hemorrhage, first trimester Pelvic pain Pre-conception counseling Tobacco Smoking/Tobacco Use Status: Never Alcohol Alcohol Intake: never Substance Use Substance use type: does not use Prental History History 2 1 Para 0 Hx # Term Pregnancies 0 Multiple births 0 Hx # Pregnancies 0 Ectopic pregnancies 0 AB induced 0 Hx Number of Living Children 0 AB spontaneous 0 Vital Signs and Lab Results Vital Signs Most Recent Vital Signs in EMR: Most Recent Vital Signs Temp Pulse Resp BP Pulse Ox 37.5 C 84 18 112/69 99 08/09/24 00:25 08/08/24 23:32 08/08/24 18:21 08/08/24 23:32 08/08/24 08:28 Lab Results 08/08/24 20:50 Blood Type / Crossmatch: 2 Antibody Screen NEGATIVE 08/08/24 Complete Blood Count: 2 White Blood Count 14.52 10^3/uL (4.4-10.8) H 08/08/24 20:50 Red Blood Count 3.96 10^6/uL (3.93-5.22) 08/08/24 20:50 Hemoglobin 12.0 g/dL (11.2-15.7) 08/08/24 20:50 Hematocrit 36.8 % (36.0-46.0) 08/08/24 20:50 Platelet Count 231 10^3/uL (130-400) 08/08/24 20:50 Complete Metabolic Panel: 2 No Data to Display Liver Function Panel: 2 No Data to Display Coagulation Panel: 2 No Data to Display Cardiac Panel: 2 No Data to Display Arterial Blood Gas: 2 No Data to Display Venous Blood Gas: 2 No Data to Display Pancreas Panel: 2 No Data to Display Thyroid Panel: 2 No Data to Display Infectious Disease: 2 No Data to Display Blood Cultures: 2 No Data to Display Toxicology Panel: 2 No Data to Display Panel: 2 No Data to Display Anesthesia Assessment and Plan Anesthesia History Personal History: No History of Anesthesia Complications Family History: No Family History of Anesthesia Complications Exercise Tolerance Exercise Tolerance: Metabolic Equivalents>4 Pertinent Negatives Pertinent Negatives: No Symptoms of GERD Cardiac & Pulmonary Exam Cardiac Exam: Normal S1/S2 Heart Sounds Pulmonary Exam: Clear Bilateral Breath Sounds Implantable Cardiac Device Does patient have a Pacemaker or an ICD?: No Airway Exam Known Difficult Airway: No Mallampati Class: 2 Mouth Opening: Normal (> 3cm) Thyromental Distance: Greater than 3 cm Neck Range of Motion: Full ROM Neck Circumference: Normal Teeth Condition: Normal Dentition ASA Classification ASA Score: ASA 2 Emergency Case?: No NPO Status NPO Status: Full Stomach Status Status: Confirmed Anesthesia Plan Resuscitation Status: Full Code Anesthesia Technique: Spinal Anesthesia Airway Planned: Natural Airway Monitors Used: Standard Monitors
[2024-08-09] MEDS: AZITHROMYCIN 500 MG in Normal Saline 250 ML 250 MG IVPB (02:14)
[2024-08-09] MEDS: Lactated Ringers 1,000 ML 200 ML IV (02:14)
[2024-08-09] MEDS: CLINDAMYCIN 900 MG/50 ML BAG 100 MG (02:31)
--- NOTE | 2024-08-09 02:50 | PLAC_PTH ---
PATIENT: Karina Castillo LOC: OBS U#:[id number] AGE/SX: 28/F ROOM: OBS.303 RE08/08/[address]: Joana Leung CNM : 1995 BED: A DIS: 08/11/2024 SPEC #: [id number] RECD: 08/09/24 12:36 STATUS: PRANAY REQ #: [id number] ALEC: 08/09/24 02:[address]: Joana Leung DEPT: Surgical Specimen RECD BY: Estella Strauss ENTERED: 08/09/24 12:38 SP TYPE: PLAC OTHR DR: Niki Perez Tissues: 1 - PLACENTA (3RD TRIMESTER) Procedures: GROSS AND MICRO LEVEL 5 Comments: [id number]
[2024-08-09] MEDS: Bupivacaine 0.25% Pres-Free 30 ML VIAL (03:04)
[2024-08-09] MEDS: Naloxone 0.4 MG/ML VIAL IVP ×3 (05:35→20:44)
[2024-08-09] MEDS: Ondansetron 4 MG/2 ML VIAL IVP ×2 (05:36→11:25)
[2024-08-09 07:23] LABS: Abs Immature Grans 0.13 10^3/uL (0.0-0.06); Absolute Basophil Count 0.04 10^3/uL (0.0-0.2); Absolute Eosinophil Count 0.02 10^3/uL (0.0-0.7); Absolute Lymphocyte Count 1.64 10^3/uL (1.2-3.4); Absolute Monocyte Count 1.47 10^3/uL (0.1-0.8); Absolute Neutrophil Count 15.78 10^3/uL (1.2-6.7); Basophils % 0.2 %; Eosinophils % 0.1 %; HCT 33.2 % (36.0-46.0); HGB 10.9 g/dL (11.2-15.7); Immature Grans % 0.7 %; Lymphocytes % 8.6 %; MCH 30.8 pg (27.0-33.0); MCHC 32.8 % (32.0-36.0); MCV 94 fL (80-95); MPV 11.1 fL (8.0-11.0); Monocytes % 7.7 %; Neutrophils % 82.7 %; Platelet Count 221 10^3/uL (130-400); RBC 3.54 10^6/uL (3.93-5.22); RDW 14.1 % (11.7-14.6); RDW-SD 48.8 fL; WBC 19.08 10^3/uL (4.4-10.8)
[2024-08-09] MEDS: AMPICILLIN SODIUM 2 GM in Normal Saline 100 ML IVPB ×3 (08:00→20:37)
[2024-08-09] MEDS: Lactated Ringers 1,000 ML 120 ML IV (08:00)
[2024-08-09] MEDS: Ketorolac 30 MG/ML VIAL IVP ×3 (08:10→20:05)
--- NOTE | 2024-08-09 08:37 | W.PM.OBCSECT ---
Date of service: 08/09/24 Time of Service: 08:38 Operative Note Operative Note Delivery Method: Unscheduled STAT: No and Primary NTSV>37 Weeks: Yes DATE OF PROCEDURE: 08/09/24 PRE-OP DIAGNOSES: IUP @ 39w0d, maternal fever in labor, arrest of dilation. PROm POST-OP DIAGNOSES: same PROCEDURE: primary low transverse delivery SURGEON: Cydney Metzger Painting Supervisor: Joana Leung Anesthesia: spinal Estimated blood loss (mL): 400 Pathology: other (placenta to path. cord blood to lab) Complications: None Patient was transported to: floor Patient's condition: stable Indications: 28yo G1 female currently 39w EGA who had SROM approximately 28hrs ago. At time of presentation to in am 08/08/24 sterile speculum exam performed and confirmed ROM. SVE deferred. No apparent cervical dilation. Oxytocin augmentation of labor performed with max Oxytocin concetration 6mu/min with regular contractions and no signigicant cervical change since admission. TM of 100.8 F at 21:00 tonight. Rx with Acetaminophen and Ampicillin and Gentamycin initiated. FHR category 1. Pt was counseled that despite regular painful contractions there had been no cervical change and with pt remote from delivery with presumed choriamnioitis I advised preoceeding to delivery Findings: Viable male infant in vtx presentation. Clear amniotic fluid. Nl uterus, fallopian tubes and ovaries. arterial blood gas: pH 7.38, BE -1 Procedure Description: Patient was taken to the operating room she is placed in the sitting position and spinal anesthesia was administered without difficulty. She was then placed in the dorsal supine position with a leftward tilt. SCDs and a Goldstein catheter to gravity drainage were placed. A vaginal prep with Betadine was performed and the patient was prepped and draped in the usual sterile fashion. Surgical timeout was performed. Preop antibiotics were administered. After a adequate level of anesthesia was achieved a Pfannenstiel skin incision was made approximately 2 cm superior to the pubic symphysis using a scalpel and the underlying subcutaneous tissue dissected using Bovie electrocautery to the level of the rectus fascia. The rectus fascia was then nicked in the midline and the fascial incision extended laterally using Bovie electrocautery. 2 Nilesh clamps were applied to the superior rectus fascia and the rectus fascia was dissected off of the underlying rectus muscles using Bovie electrocautery and blunt technique. A similar technique was carried out on the inferior rectus fascia. Rectus muscles were then in the midline and the peritoneum entered bluntly. The peritoneal incision was extended laterally using blunt technique. The vesicle-uterine peritoneum over lower uterine segment was incised with curved Saxena scissors and the bladder flap created bluntly. Scalpel was used to incise the lower uterine segment in a transverse fashion. The uterine incision was extended bluntly and the amniotic sac was ruptured with clear amniotic fluid noted. A single gloved hand was placed into the uterine cavity and the head was successfully delivered through the uterine incision followed by the trunk and extremities with the assistance of fundal pressure. The cord was doubly clamped and cut and the handed off to the waiting pediatric team. A segment of umbilical cord was obtained and the placenta was extracted with a combination of fundal massage and gentle cord traction. The uterus was exteriorized cleared of all clots and debris and the uterine incision reapproximated with a running lock suture of 0 Vicryl followed by a second imbricating suture of 0 Vicryl. Uterine incision was noted be hemostatic. The uterus was returned to the abdomen and the paracolic gutters cleared of all clots and debris. Uterine incision and the along with the bladder flap and the abdominal wall were all inspected and noted to be hemostatic. The rectus fascia was reapproximated with a running suture of 0 Vicryl. space within the subcutaneous tissue closed with a running suture of 2-0 Vicryl. The skin incision was reapproximated with a subcuticular closure of 4-0 Vicryl. Steri strips and a Mepilex dressing was applied. The uterus was massaged for any remaining clots and debris. The patient was transported to recovery area in stable condition. All sponge, lap, and needle counts correct x2. [place] Gestational Age in Weeks/Days: 39 Weeks and 0 Days Gender: Male weight: 9 lb 5 oz See Nursing Delivery Note for weight and Scores: Infant will be named Bush
[2024-08-09] MEDS: Metoclopramide 10 MG/2 ML VIAL IVP ×3 (09:04→20:05)
[2024-08-09] MEDS: CLINDAMYCIN 900 MG/50 ML BAG 50 MG IVPB ×3 (09:04→21:31)
[2024-08-09] MEDS: Dexamethasone 4 MG/ML VIAL IVP (12:00)
--- NOTE | 2024-08-09 12:00 | W.PM.OBPNV1 ---
Date of service: 08/09/24 Time of Service: 12:00 Assessment and Plan Assessment and plan (1) Status post primary low transverse section: Status: Acute Assessment and plan: Patient postop day 0 status post primary low-transverse section for chorioamnionitis. She is on triple antibiotic therapy and will continue this for approximately 24 hours if she remains afebrile. Laboratory studies are pending for the morning. She does have significant nausea and vomiting which may be medication related. Her vital signs are otherwise stable. She will have a fluid bolus, antiemetics, and will add Decadron, 4 mg IV x 1. Will continue to monitor closely. All questions were answered. (2) Chorioamnionitis, delivered, current hospitalization: Status: Acute (3) Nausea and vomiting: Status: Acute Subjective Subjective Interval history: Patient seen postop day #0 status post primary low-transverse section for labor arrest and chorioamnionitis. She has had persistent nausea and vomiting despite multiple antiemetics. Her vital signs are stable. Her urine output is marginal, though she is somewhat dehydrated. She does have sensitivities to other medications. At this point, she will be given Decadron, 4 mg IV. Will continue her triple antibiotic therapy for her chorioamnionitis for a minimum of 24 hours. She will also have a fluid bolus at this point. Will continue to monitor closely. All questions were answered. Exam Physical Exam Vital signs: Temp Pulse Resp BP Pulse Ox 98.6 F 76 16 120/57 L 97 08/09/24 08:15 08/09/24 07:30 08/09/24 10:00 08/09/24 07:30 08/09/24 07:30 Results Hemoglobin/Hematocrit: Hgb 10.9 g/dL (11.2-15.7) L 08/09/24 07:15 Hct 33.2 % (36.0-46.0) L 08/09/24 07:15 Abnormal Lab Findings: Abnormal Labs 08/08/24 08/08/24 08/09/24 08:35 20:50 07:15 WBC 11.98 H 14.52 H 19.08 H RBC 3.54 L Hgb 10.9 L Hct 33.2 L MPV 11.4 H 11.4 H 11.1 H Absolute Neutrophils 11.08 H 15.78 H Absolute Monocytes 1.05 H 1.47 H
[2024-08-09] MEDS: Lactated Ringers 1,000 ML 125 ML IV (14:00)
--- NOTE | 2024-08-09 16:34 | W.ANESPOSTOP ---
Postoperative Evaluation Date, Time and Location Date Performed: 08/09/24 Time Performed: 15:35 Patient Location: Obstetrics Vital Signs Most Recent Imported Vital Signs: Most Recent Vital Signs Temp Pulse Resp BP Pulse Ox 36.7 C 84 16 120/71 96 08/09/24 16:00 08/09/24 16:00 08/09/24 16:00 08/09/24 16:00 08/09/24 09:13 Pain Score Most Recent Pain Score: Most Recent Pain Score Pain Level [Abdomen] 6 08/08/24 10:12 Pain Level 0 08/09/24 10:00 Assessment Mental Status: Awake (Alert & Oriented to Patient Baseline) Airway and Respiratory Function: Patent airway with normal (patient baseline) respiratory exam Cardiovascular Function: Hemodynamically Stable Hydration Status: Adequately Hydrated Nausea & Vomiting: No Nausea or Vomiting (Had initial n/v dell-operatively. Has since been able to keep a meal down.) Pain: Pt. Denies Any Pain Peripheral Nerve Block: Patient did not receive a nerve block
[2024-08-09] MEDS: Pantoprazole 40 MG TABCR PO (20:33)
[2024-08-09] MEDS: Sertraline 50 MG TAB PO (20:33)
[2024-08-10] VITALS (7 sets, daily range): BP systolic 115–130; BP diastolic 69–77; PULSE 71–80; RESP 14–18; TEMP 36.5–37.1; O2SAT 97–99
[2024-08-10] MEDS: Lactated Ringers 1,000 ML 125 ML IV (01:32)
[2024-08-10] MEDS: Ketorolac 30 MG/ML VIAL IVP (02:03)
[2024-08-10] MEDS: AMPICILLIN SODIUM 2 GM in Normal Saline 100 ML IVPB ×3 (02:03→14:22)
[2024-08-10] MEDS: Metoclopramide 10 MG/2 ML VIAL IVP ×2 (02:04→08:27)
[2024-08-10] MEDS: CLINDAMYCIN 900 MG/50 ML BAG 50 MG IVPB ×3 (03:15→16:00)
[2024-08-10] MEDS: Normal Saline Flush 10 ML SYR IVP ×2 (08:39→20:02)
[2024-08-10] MEDS: Acetaminophen 325 MG TAB 650 MG PO ×3 (08:57→22:31)
[2024-08-10] MEDS: Ibuprofen 600 MG TAB PO ×2 (08:58→18:39)
--- NOTE | 2024-08-10 12:57 | W.PM.OBPNV1 ---
Date of service: 08/10/24 Time of Service: 12:57 Assessment and Plan Assessment and plan (1) Status post primary low transverse section: Status: Acute Assessment and plan: Patient is postoperative day #2 status post primary low-transverse section. Labor was complicated by chorioamnionitis. She has been on triple antibiotic therapy and afebrile for greater than 24 hours. We will discontinue her IV antibiotics after her last dose of medication. She has no tenderness and overall is doing well. I would not anticipate further need for antibiotic therapy. All questions were answered. Goldstein catheter to be removed. Ambulate. (2) Chorioamnionitis, delivered, current hospitalization: Status: Acute Subjective Subjective Interval history: Patient seen today postop day #1 status post primary low-transverse section. Today she is feeling much better. She has been afebrile for greater than 24 hours. She is no longer vomiting. Vital signs are stable. Urine output is appropriate. Will discontinue her Goldstein catheter today. She will ambulate. Will discontinue IV antibiotics at the 24-hour ashley. All of her questions were answered. baby status: Doing well Exam Physical Exam Vital signs: Temp Pulse Resp BP Pulse Ox 97.7 F 71 14 119/76 99 08/10/24 07:45 08/10/24 07:45 08/10/24 07:45 08/10/24 07:45 08/10/24 01:34 Vital Signs Reviewed: Yes Constitutional Constitutional: no acute distress, average body habitus and cooperative HEENT Exam HEENT Exam: Normal Respiratory Exam Respiratory Exam: Normal Cardiovascular Exam Cardiovascular Exam: Normal Abdominal Exam Abdomen: Tender Comments: Mepilex in place Fundal Exam Fundus: Below Umbilicus and Firm Extremities Exam Extremity Exam: Normal and Edema (1+ bilateral); negative Calf Tenderness Neurological Exam Neurological Exam: Normal Results Hemoglobin/Hematocrit: Hgb 10.9 g/dL (11.2-15.7) L 08/09/24 07:15 Hct 33.2 % (36.0-46.0) L 08/09/24 07:15 Abnormal Lab Findings: Abnormal Labs 08/08/24 08/08/24 08/09/24 08:35 20:50 07:15 WBC 11.98 H 14.52 H 19.08 H RBC 3.54 L Hgb 10.9 L Hct 33.2 L MPV 11.4 H 11.4 H 11.1 H Absolute Neutrophils 11.08 H 15.78 H Absolute Monocytes 1.05 H 1.47 H
[2024-08-10] MEDS: Sertraline 50 MG TAB PO (20:01)
[2024-08-10] MEDS: Docusate Sodium 100 MG CAP PO (22:31)
[2024-08-11] VITALS: BP 131/87; PULSE 76; RESP 17; TEMP 36.8; O2SAT 100
[2024-08-11 05:50] VITALS: BP 128/90; PULSE 77; RESP 17; TEMP 36.4; O2SAT 97
[2024-08-11] MEDS: Ibuprofen 600 MG TAB PO (05:52)
[2024-08-11] MEDS: Acetaminophen 325 MG TAB 650 MG PO (05:52)
[2024-08-11 09:15] VITALS: BP 126/77; PULSE 74; RESP 123; TEMP 36.7
--- NOTE | 2024-08-11 10:15 | DSE_ITS ---
Date of service: 08/11/24 Time of Service: 10:16 DS: Diagnosis Discharge Diagnosis (1) Status post primary low transverse section: Status: Acute (2) Chorioamnionitis, delivered, current hospitalization: Status: Acute (3) Abnormal labor: Status: Acute Discharge Plan Disposition Patient Disposition: Home Condition: Improving Discharge Details Reason For Visit: Labor Admit Date/Time: 08/08/24 08:19 Admit Provider: Joana Leung Attending Provider: Joana Leung Primary Care Provider: Niki Perez Hospital Course Hospital Course: 08/08/24 28yo female admitted with PROM @ 38w6d EGA. Oxytocin augmentation of labor complicated by chorioamnionitis. FHR category 1. Despite adequate contractions on external monitor cervix with no cervical change from 1cm. 08/09/24 pLTCS without complications of viable male infant named 'Bush weight 4190 gms. Apgars 9/9. Umbilical cord gas pH 7.38, BE -1. she received IV Ampicilin, Gentamycin and Clindamycina for 24hr. Pt remained afebrile . POD 2 pt and infant discharged to home with patient successfully pumping breast milk and bottle feeding it to her infant. Pain well tolerated with Ibuprofen and Acetaminophen. She will f/u in one week for dressing removal and inspection of incision. Home Meds and New Rx's Prescriptions: Discontinued aspirin 81 mg tablet,delayed release (DR/EC) 81 mg PO DAILY Qty: 60 4RF Rx Instructions: take 1 tab daily alternating with 2 tabs every other day fluconazole [Diflucan] 100 mg tablet 100 mg PO DAILY Qty: 1 0RF No Action pantoprazole [Protonix] 40 mg tablet,delayed release (DR/EC) 40 mg PO DAILY Qty: 60 6RF Alive Daily Support 180 mcg-25 mg- 25 mg tablet,chewable 1 tab PO 1XD sertraline 50 mg tablet 50 mg PO DAILY Zyrtec 10 mg capsule 10 mg PO DAILY PRN Discharge Instructions Additional Instructions: Stop daily Aspirin dose. You may take over the counter Ibuprofen 600mg ( 3 tablets of 200mg) every 6 hours as needed for pain along with Acetaminophen 325mg every 6 hours as needed for pain. You may shower with your dressing in in place. Keep your appointment at [facility] in one week. Stand Alone Forms: BC Instructions, BC Discharge Instruc Activity:: Activity as Tolerated Equipment/Supplies:: No Equipment Needed Diet:: As Tolerated Discharge Orders Discharge Orders: Discharge Order (Routine); Ordered 08/11/24 Ordered By: Cydney Metzger OB:DS Summary Contraception Discussed Contraception Discussed: No, [place] Gender-Baby A: Male weight: 9 lb 5 oz Status at Discharge Functional status at discharge: independent ambulation Overall status at discharge: patient is progressing back to baseline Mental Status: mental status grossly normal Speech and Movement: speech and movement normal Mood: congruent mood Affect: normal affect Quality:SDOH Health Related Social Needs: No Data to Display Exam Physical Exam Vital signs: Temp Pulse Resp BP Pulse Ox 98.1 F 74 123 H 126/77 97 08/11/24 09:15 08/11/24 09:15 08/11/24 09:15 08/11/24 09:15 08/11/24 05:50 Vital Signs Reviewed: Yes Notable Details: afebrile x 24hrs Constitutional Constitutional: no acute distress Neck Exam Neck Exam: Normal Respiratory Exam Respiratory Exam: Normal Cardiovascular Exam Cardiovascular Exam: Normal Abdominal Exam Abdomen: Tender Comments: Incision covered with dry Mepilex dressing Fundal Exam Fundus: Below Umbilicus and Firm Extremities Exam Extremity Exam: Normal and Edema (to knees bilaterally) Back/Spine/Pelvis Exam Back Exam: Normal Skin Exam Skin Exam: Normal Neurological Exam Neurological Exam: Normal Psychiatric Exam Psychiatric Exam: Normal Additional findings Additional findings: Pt pumping breast milk. PFSH All Active Problems (Updated 08/09/24 @ 12:01 by Neelima Salazar DO) Nausea and vomiting (Acute) Chorioamnionitis, delivered, current hospitalization (Acute) Status post primary low transverse section (Acute) Maternal fever during labor (Acute) Abnormal labor (Acute) PROM with onset of labor within 24 hours of rupture (Acute) Third trimester bleeding, antepartum (Acute) Heartburn (Acute) protonix escribed in Depression (Chronic) (Acute) Family history of thyroid disease in grandmother (Acute) Polycystic ovarian syndrome (Acute) Medical History Low lying placenta nos or without hemorrhage, first trimester Pelvic pain Pre-conception counseling Social History (Reviewed 08/08/24 @ 09:17 by BELINDA Martin Smoking/Tobacco Use Status: Never Smoking risk assessment performed?: Yes Alcohol Intake: never Substance use type: does not use Housing: house Do you feel safe at home: Yes Do you feel safe in your relationship?: Yes Female Reproductive History Menstrual control method: none History History 1 Para 0 Hx # Term Pregnancies 1 Multiple births 0 Hx # Pregnancies 0 Ectopic pregnancies 0 AB induced 0 Hx Number of Living Children 1 AB spontaneous 0 Past Pregnancies Del. Date GA/Weeks # Preg Succ Route Wgt Sex Labor Lgth Anesth esia Location Prov [facility] 08/09/24 39 No Yes 9 lb 3.798 oz Male aoc/KH Delivery Date: 08/09/24 Last Updated by: Cydney Metzger MD [place]. pLTCS for arrest of dilation after PROM and chorioamnioitis. DS: Data Vitals/I&O Vitals and I&O: Vital Signs Temperature 98.1 F 08/11/24 09:15 Temperature 98.0 F 08/08/24 08:57 Temperature Source Oral 08/11/24 09:15 Pulse 74 08/11/24 09:15 Pulse 77 08/08/24 08:57 Pulse Rhythm Regular 08/11/24 09:15 Respiratory Rate 123 H 08/11/24 09:15 Respiratory Depth Normal 08/09/24 20:00 Blood Pressure 126/77 08/11/24 09:15 Blood Pressure 134/82 08/08/24 08:57 Blood Pressure Mean 93 08/11/24 09:15 Pulse Oximetry 97 08/11/24 05:50 Oxygen Delivery Method Room Air 08/08/24 08:28 Oxygen Flow Rate 0 08/08/24 08:28 Pain Level 3 08/11/24 09:15 Comment Patient back to bed after using restroom. 08/11/24 00:00 Intake & Output 08/10/24 08/10/24 08/11/24 11:59 23:59 11:59 Intake Total 250 / 400 150 / 400 Output Total 800 / 3900 2600 / 3900 500 / 500 Balance -550 / -3500 -2450 / -3500 -500 / -500 Intake: IV 250 / 400 150 / 400 Output: Urine 800 / 3900 2600 / 3900 500 / 500 Other: Urine Color Yellow Yellow Urine Appearance Clear
== END 2024-08-11 14:30 | disposition home or self-care (01) | DRG 786 ==
LOC: BCD 08:49 → OBS 15:28 → BCD 08-10 09:14
PROVIDERS: Obstetrics & Gynecology Gynecology; Admitting Provider Advanced Practice Midwife; PCP Nurse Practitioner; Visit Provider Advanced Practice Midwife
PROC: 10D00Z1 Extraction of Products of Conception, Low, Open Approach (ICD-10-PCS; CPT 59514; principal; 2024-08-09 01:45)
DX: O42.02 Full-term premature rupture of membranes, onset of labor within 24 hours of rupture (principal); O41.1230 Chorioamnionitis, third trimester, not applicable or unspecified; Z37.0 Single live birth; O62.1 Secondary uterine inertia; Z3A.39 39 weeks gestation of pregnancy; O99.284 Endocrine, nutritional and metabolic diseases complicating childbirth; O75.89 Other specified complications of labor and delivery; E28.2 Polycystic ovarian syndrome; O99.344 Other mental disorders complicating childbirth; F32.A Depression, unspecified; O99.62 Diseases of the digestive system complicating childbirth; R12 Heartburn; G89.29 Other chronic pain; M25.551 Pain in right hip; Z83.49 Family history of other endocrine, nutritional and metabolic diseases; O43.893 Other placental disorders, third trimester
CPT/HCPCS: 59514; 36415; 84112; 85027; 86850; 86900; 86901; 59025; 85025; 88307; J0290; J0456; J0665; J0690; J0737; J1100; J1580; J1885; J2274; J2310; J2371; J2405; J2765; J3010; J3490

== ENCOUNTER 2025-08-21 01:30 | Outpatient (CLI) | payer MEDICAID, SELFPAY ==
[2025-08-21 12:42] LABS: Abs Immature Grans 0.04 10^3/uL (0.0-0.06); HCT 37.9 % (36.0-46.0); HGB 12.8 g/dL (11.2-15.7); Immature Grans % 0.4 %; MCH 30.9 pg (27.0-33.0); MCHC 33.8 % (32.0-36.0); MCV 92 fL (80-95); MPV 9.5 fL (8.0-11.0); Platelet Count 313 10^3/uL (130-400); RBC 4.14 10^6/uL (3.93-5.22); RDW 12.5 % (11.7-14.6); RDW-SD 42.0 fL; WBC 9.97 10^3/uL (4.4-10.8)
[2025-08-21 15:41] LABS: Hemoglobin A1C 5.1 % (<5.7)
[2025-08-22 00:26] LABS: HIV-1/2 Ag & Ab Screen Negative (Negative)
[2025-08-22 00:30] LABS: Hepatitis C Ab w Rflx HCV PCR Negative (Negative)
[2025-08-22 10:05] LABS: Rubella IgG Ab (UVM) Positive (See Note)
[2025-08-23 21:02] LABS: Syphilis IgG w/Reflex Nonreactive (Nonreactive)
== END 2025-08-21 01:31 | disposition home or self-care (01) ==
LOC: LBO 01:30
PROVIDERS: Advanced Practice Midwife; PCP Nurse Practitioner; Visit Provider Advanced Practice Midwife
DX: Z34.91 Encounter for supervision of normal pregnancy, unspecified, first trimester (principal)
CPT/HCPCS: 36415; 81220; 81222; 81329; 86787; 86803; 86850; 86900; 86901; 87340; 87389; 83036; 85025; 86762; 86780

== ENCOUNTER 2025-08-21 10:54 | Outpatient (REF) | payer MEDICAID, SELFPAY ==
[2025-08-21 15:40] LABS: Cannabinoids THC Negative (Negative); Fentanyl Scr w/Rflx to Conf, U Negative (Negative)
[2025-08-22 12:07] LABS: Chlamydia Result Negative (Negative); GC Result Negative (Negative)
== END 2025-08-21 10:55 | disposition home or self-care (01) ==
LOC: LBN 10:54
PROVIDERS: Advanced Practice Midwife; PCP Nurse Practitioner; Visit Provider Advanced Practice Midwife
DX: Z34.91 Encounter for supervision of normal pregnancy, unspecified, first trimester (principal)
CPT/HCPCS: 80307; 80348; 87491; 87591; 87086